=== PATIENT | male | born 1930 | race Caucasian/White ===

== ENCOUNTER → 2016-10-14 | Outpatient (CLI) | payer MEDICARE, OTHER ==
--- NOTE | 2016-10-14 13:59 | RADIOLOGY REPORT (SQ) ---
EXAM DESCRIPTION: MRI HEAD COMBO COMPLETED DATE/TIME: 10/14/2016 1:13 pm REASON FOR STUDY: HEADACHES R55 SYNCOPE AND COLLAPSE COMPARISON: None. TECHNIQUE: Multiplanar imaging includes noncontrasted T1, T2, FLAIR, Diffusion with ADC map and post gadolinium contrast T1 sequences. Images stored on PACS. CONTRAST TYPE AND DOSE: 15 mL Multihance. RENAL FUNCTION: GFR 50 LIMITATIONS: None. FINDINGS: ANATOMY: No anomalies. Normal vascular flow voids. Pituitary fossa normal. CSF SPACES: Atrophy-induced prominence of CSF spaces and ventricles. CEREBRUM: High-signal intensity lesions scattered throughout the white matter on FLAIR imaging with d istribution suggesting chronic micro-vascular ischemic change. No evidence of hemorrhage, mass, extra axial fluid collection or acute ischemic change. No enhancing lesions. POSTERIOR FOSSA: No signal alteration. No hemorrhage. No edema, masses, or mass effect. Internal miryam tory canals, cerebello-pontine angles, mastoids normal. No enhancing lesions. ORBITS: No masses. Globes normal. PARANASAL SINUSES: No fluid levels. Mucosa normal. DIFFUSION: Normal. No evidence of recent infarct. OTHER: No other significant finding. IMPRESSION: ATROPHY AND CHRONIC MICRO-VASCULAR ISCHEMIC CHANGES. OTHERWISE UNREMARKABLE MRI OF THE B RAIN WITHOUT AND WITH INTRAVENOUS GADOLINIUM CONTRAST. TECHNICAL DOCUMENTATION: JOB ID: [id number] [employer]- All Rights Reserved
== END ==
LOC: RAD 11:26
PROVIDERS: ATTEND Physician Assistant
DX: R55 Syncope and collapse (principal); R51 Headache; G31.9 Degenerative disease of nervous system, unspecified
CPT/HCPCS: 70553; 82565

== ENCOUNTER 2016-12-15 22:56 | Inpatient (IN) | payer MEDICARE, OTHER ==
--- NOTE | 2016-12-15 23:12 | RADIOLOGY REPORT (SQ) ---
EXAM DESCRIPTION: CHEST SINGLE VIEW COMPLETED DATE/TIME: 12/15/2016 11:04 pm REASON FOR STUDY: STROKE ALERT COMPARISON: January 2007 EXAM PARAMETERS: NUMBER OF VIEWS: One view. TECHNIQUE: Single frontal radiographic view of the chest acquired. RADIATION DOSE: NA LIMITATIONS: None. FINDINGS: LUNGS AND PLEURA: No opacities, masses or pneumothorax. No pleural effusion. MEDIASTINUM AND HILAR STRUCTURES: No masses. Contour normal. HEART AND VASCULAR STRUCTURES: Cardiac silhouette is enlarged and unchanged in configuration. Tortuo us calcified thoracic aorta is again identified. BONES: No acute findings. HARDWARE: Patient is status post median sternotomy. OTHER: No other significant finding. IMPRESSION: No significant interval change. No acute findings. Other findings as noted above TECHNICAL DOCUMENTATION: JOB ID: [id number]
--- NOTE | 2016-12-15 23:12 | RADIOLOGY REPORT (SQ) ---
EXAM DESCRIPTION: CT HEAD WITHOUT COMPLETED DATE/TIME: 12/15/2016 11:02 pm REASON FOR STUDY: STROKE ALERT COMPARISON: None. TECHNIQUE: Axial images acquired through the brain without intravenous contrast. Images reviewed wi th bone, brain and subdural windows. Images stored on PACS. All CT scanners at this facility use dose modulation, iterative reconstruction, and/or weight based d osing when appropriate to reduce radiation dose to as low as reasonably achievable (ALARA). [facility]: Dose Right [facility]: CareDose [facility]: Dose Right [facility]: Teradose 4D [facility]: Ticketbis RADIATION DOSE: mGy. LIMITATIONS: None. FINDINGS: VENTRICLES: Prominent. CEREBRUM: No masses. No hemorrhage. No midline shift. Areas of low density in the white matter mos t likely due to chronic micro-vascular ischemic change. No evidence for acute infarction. CEREBELLUM: No masses. No hemorrhage. No alteration of density. No evidence for acute infarction. EXTRAAXIAL SPACES: Mild age-related involutional change. No fluid collections. No masses. ORBITS AND GLOBE: No intra- or extraconal masses. Normal contour of globe without masses. CALVARIUM: No fracture. PARANASAL SINUSES: No fluid or mucosal thickening. SOFT TISSUES: No mass or hematoma. OTHER: No other significant finding. IMPRESSION: MILD CHRONIC CHANGES OF ATROPHY AND MICROVASCULAR ISCHEMIA. NO ACUTE PROCESS. COMMENT: Pertinent positive or negative findings of the imaging study reported as a CRITICAL EXAM eric ROTH MD at23:03 on 12/15/2016. Category of Critical Exam: Stroke alert TECHNICAL DOCUMENTATION: JOB ID: [id number] Quality ID # [id number]: Final reports with documentation of one or more dose reduction techniques (e.g., Au tomated exposure control, adjustment of the mA and/or kV according to patient size, use of iterative reconstruction technique) 2010 [employer]- All Rights Reserved
[2016-12-15 23:30] LABS: ABSOLUTE LYMPHOCYTES (AUTO) 0.9 10^3/uL (0.5-4.7); ABSOLUTE NEUT (AUTO) 10.1 10^3/uL (1.7-8.2); BASOPHILS % (AUTO) 0.2 % (0-2); EOSINOPHILS % (AUTO) 0.1 % (0-6); HEMATOCRIT 38.7 % (37.9-51.0); HEMOGLOBIN 13.1 g/dL (13.5-17.0); HGB HCT DIFFERENCE 0.6; LYMPHOCYTES % (AUTO) 7.5 % (13-45); MEAN CORPUSCULAR HEMOGLOBIN 32.9 pg (27.0-33.4); MEAN CORPUSCULAR HGB CONC 33.9 g/dL (32.0-36.0); MEAN CORPUSCULAR VOLUME 97 fl (80-97); MONOCYTES % (AUTO) 8.1 % (3-13); RED BLOOD COUNT 3.98 10^6/uL (4.35-5.55); RED CELL DISTRIBUTION WIDTH 15.1 % (11.5-14.0); SEGMENTED NEUTROPHILS % (AUTO) 84.1 % (42-78)
--- NOTE | 2016-12-15 23:36 | ER Document Report ---
ED General - General Chief Complaint: S/S of Possible Stroke Stated Complaint: POSS STROKE Time Seen by Provider: 12/15/16 23:03 Notes: Patient is an 86-year-old male with past medical history of A. fib, prior pig valve replacement, chronically anticoagulated on Coumadin who presents after family noted that he had a right-sided facial droop. There is an undetermined last known normal as patient does live alone. Does report that last evening he did fall when he felt like his left side was weaker than his right but is uncertain of whether or not he had a facial droop at that time. At approximately 1600 today his family came to visit and noted that his left face appeared to be drooped and encouraged him to come to the emergency department for further evaluation. Nothing improves or worsens his symptoms. He has no history of similar symptoms in the past. He has not seen his primary care doctor regarding today's concerns. TRAVEL OUTSIDE OF THE [place] IN LAST 30 DAYS: No - Related Data Allergies/Adverse Reactions: Sulfa (Sulfonamide Antibiotics) Allergy (Verified 08/06/12 16:33) Home Medications: Current Home Medications Allopurinol [Zyloprim] 300 mg PO DAILY 12/15/16 [History] Furosemide [Lasix] 40 mg PO BID 12/15/16 [History] Mirabegron [Myrbetriq] 50 mg PO DAILY 12/15/16 [History] Pantoprazole Sodium 40 mg PO DAILY 12/15/16 [History] Sertraline HCl 100 mg PO DAILY 12/15/16 [History] Past Medical History - General Information source: Patient - Social History Smoking Status: Never Smoker Frequency of alcohol use: None Drug Abuse: None Lives with: Alone Family History: Reviewed & Not Pertinent - Past Medical History Cardiac Medical History: Reports: Hx Atrial Fibrillation Past Surgical History: Reports: Hx Cardiac Surgery - open heart Review of Systems - Review of Systems Notes: Constitutional: Negative for fever. HENT: Negative for sore throat. Eyes: Negative for visual changes. Cardiovascular: Negative for chest pain. Respiratory: Negative for shortness of breath. Gastrointestinal: Negative for abdominal pain, vomiting or diarrhea. Genitourinary: Negative for dysuria. Musculoskeletal: Negative for back pain. Skin: Negative for rash. Neurological: Positive for left-sided weakness 10 point ROS negative except as marked above and in HPI. Physical Exam - Vital signs Vitals: Resp Pulse Ox 9 L 98 12/15/16 23:06 12/15/16 23:06 Interpretation: Normal Notes: PHYSICAL EXAMINATION: GENERAL: Appears stated age, somewhat frail but in no acute distress HEAD: Atraumatic, normocephalic. EYES: Pupils equal round and reactive to light, extraocular movements intact, sclera anicteric, conjunctiva are normal. ENT: nares patent, oropharynx clear without exudates. Moderately dry mucous membranes. NECK: Normal range of motion, supple without lymphadenopathy LUNGS: Breath sounds clear to auscultation bilaterally and equal. No wheezes rales or rhonchi. HEART: Irregularly irregular tachycardia without murmurs ABDOMEN: Soft, nontender, normoactive bowel sounds. No guarding, no rebound. No masses appreciated. EXTREMITIES: Normal range of motion, no pitting or edema. No cyanosis. NEUROLOGICAL: 4+ out of 5 strength both in the biceps and triceps in the left. Both distally and proximally in the left lower extremity the patient has 4+ out of 5. 5 out of 5 both distally and proximally in the right upper and lower extremity. There is a subtle facial droop on the left with effacement of the nasolabial fold. Tongue protrudes midline. Extraocular motions are intact. Pupils are equal and reactive. PSYCH: Normal mood, normal affect. SKIN: Warm, Dry, normal turgor, no rashes or lesions noted. Course - Re-evaluation Re-evalutation: 12/15/16 23:36 Patient presents with signs and symptoms of a mild right MCA distribution infarct undetermined age. Patient does not have a last known normal, family noted a right-sided facial droop when they visited him at 1600 today making him not a TPA candidate. Patient is also anticoagulated on Coumadin which should also further exclude the use of TPA. He does have a 4+ out of 5 both in the biceps and triceps as well as both distally and proximally in the left lower extremity versus the right. Very subtle left facial droop with effacement of the nasolabial fold. Patient otherwise denies any symptoms at this time. CT the head without any evidence of an acute injury bleed. Will obtain basic labs and plan for admission to the hospital. 12/16/16 01:02 INR is subtherapeutic at 1.34. Other labs are otherwise unremarkable. I discussed this case with Dr. Kit Sherman who will admit given that this is an acute stroke. - Vital Signs Vital signs: Temp Pulse Resp BP Pulse Ox 67 15 156/88 H 96 12/15/16 23:26 12/16/16 00:16 12/16/16 00:16 12/16/16 00:16 - Laboratory Result Diagrams: 12/15/16 23:09 12/15/16 23:09 Laboratory results interpreted by me: 12/15/16 12/15/16 12/15/16 23:09 23:09 23:09 WBC 12.0 H RBC 3.98 L Hgb 13.1 L RDW 15.1 H Plt Count 146 L Seg Neutrophils % 84.1 H Lymphocytes % 7.5 L Absolute Neutrophils 10.1 H PT 17.5 H Sodium 132.7 L Chloride 96 L Glucose 114 H - Diagnostic Test Radiology reviewed: Reports reviewed Radiology results interpreted by me: 12/16/16 01:01 CT head: No acute intracranial bleed - EKG Interpretation by Me Additional EKG results interpreted by me: 12/16/16 01:10 A. fib. Rate 76. No ST elevations or depressions. QTC is 486. Discharge - Discharge Clinical Impression: Acute CVA (cerebrovascular accident), Left-sided weakness Atrial fibrillation Qualifiers: Atrial fibrillation type: chronic Qualified Code(s): I48.2 - Chronic atrial fibrillation Condition: Fair Disposition: ADMITTED INPATIENT Admitting Provider: Rolando López Lane Unit Admitted: [facility] Referrals: KASEY JOHNSON MD [Primary Care Provider] - Follow up as needed
[2016-12-15 23:44] LABS: ALANINE AMINOTRANSFERASE 30 U/L (21-72); ALBUMIN 3.9 g/dL (3.5-5.0); ALKALINE PHOSPHATASE 98 U/L (38-126); ANION GAP 9 (5-19); ASPARTATE AMINO TRANSFERASE 28 U/L (17-59); BILIRUBIN,DIRECT 0.3 mg/dL (0.0-0.4); BILIRUBIN,TOTAL 0.7 mg/dL (0.2-1.3); BLOOD UREA NITROGEN 17 mg/dL (7-20); CALCIUM 9.4 mg/dL (8.4-10.2); CARBON DIOXIDE 28 mmol/L (22-30); CHLORIDE 96 mmol/L (98-107); GLUCOSE 114 mg/dL (75-110); POTASSIUM 4.3 mmol/L (3.6-5.0); SODIUM 132.7 mmol/L (137-145); TOTAL PROTEIN 6.8 g/dL (6.3-8.2)
[2016-12-16 00:03] LABS: PROTHROMBIN TIME 17.5 SEC (11.4-15.4)
[2016-12-16 00:04] LABS: PARTIAL THROMBOPLASTIN TIME 35.1 SEC (23.5-35.8)
[2016-12-16] MEDS ORDERED: ACETAMINOPHEN 325 MG TABLET PO PRN (02:16)
[2016-12-16] MEDS ORDERED: ATORVASTATIN CALCIUM 80 MG TABLET PO SCH (02:30)
[2016-12-16] MEDS ORDERED: WARFARIN SODIUM 5 MG TABLET PO ONE (02:45)
[2016-12-16] MEDS ORDERED: ATORVASTATIN CALCIUM 80 MG TABLET PO ONE (02:45)
[2016-12-16 03:29] LABS: TROPONIN I 0.015 ng/mL
[2016-12-16 03:34] LABS: CREATINE KINASE MB 2.15 ng/mL (<4.55)
[2016-12-16] MEDS: HEPARIN SOD (PORCINE) 5,000 UNIT/ML 1 ML SYRINGE SUBCUT SCH ×2 (05:10→13:17)
--- NOTE | 2016-12-16 08:13 | EKG REPORT ---
SEVERITY:- ABNORMAL ECG - ATRIAL FIBRILLATION, V-RATE 63-97 RIGHT BUNDLE BRANCH BLOCK OLD INFERIOR MO POSSIBLE : Confirmed by: Issac Alejandro MD 16-Dec-2016 08:13:27
[2016-12-16 09:24] LABS: CREATINE KINASE MB 1.99 ng/mL (<4.55); TROPONIN I 0.021 ng/mL
[2016-12-16] MEDS ORDERED: ZOLPIDEM TARTRATE PO PRN (09:37)
[2016-12-16] MEDS ORDERED: ZOLPIDEM TARTRATE 5 MG TABLET PO PRN (09:46)
[2016-12-16] MEDS ORDERED: CLOPIDOGREL BISULFATE 75 MG TABLET PO SCH (10:00)
[2016-12-16] MEDS: ENOXAPARIN SODIUM INJ 80 MG/0.8 ML DISP.SYRIN SUBCUT SCH ×2 (11:32→21:21)
[2016-12-16] MEDS: ALLOPURINOL 300 MG TABLET PO SCH (11:33)
[2016-12-16] MEDS: ASPIRIN 81 MG TABLET, ENT COATED PO SCH (11:34)
[2016-12-16] MEDS: FUROSEMIDE 40 MG TABLET PO SCH ×2 (11:35→17:14)
[2016-12-16] MEDS: LEVOTHYROXINE SODIUM 0.15 MG TABLET PO SCH (11:37)
[2016-12-16] MEDS: LANSOPRAZOLE 30 MG TAB.RAP.DR PO SCH (11:37)
[2016-12-16] MEDS: LISINOPRIL 10 MG TABLET PO SCH ×2 (11:37→21:22)
[2016-12-16] MEDS: SERTRALINE HCL 50 MG TABLET PO SCH (11:38)
[2016-12-16] MEDS ORDERED: NITROGLYCERIN 5 MG (0.2 MG/HR) PATCH.TD24 TD ONE (12:00)
--- NOTE | 2016-12-16 12:18 | RADIOLOGY REPORT (SQ) ---
EXAM DESCRIPTION: MRI HEAD WITHOUT COMPLETED DATE/TIME: 12/16/2016 12:09 pm REASON FOR STUDY: cva COMPARISON: CT brain 12/15/2016 MRI brain 10/14/2016 TECHNIQUE: Multiplanar imaging includes non-contrasted T1, T2, FLAIR, and diffusion with ADC map seq uences. Images stored on PACS. LIMITATIONS: None. FINDINGS: ANATOMY: No developmental anomalies. Normal vascular flow voids. Pituitary fossa normal. CSF SPACES: Normal in size and contour. No hemorrhage. Benign prominence of the CSF spaces over the right posterior frontal/ parietal region on coronal image 21, unchanged from prior brain MRI. CEREBRUM: Chronic minimal bifrontal and biparietal small vessel ischemic change. No MRI evidence of acute hemispheric infarct, acute intracranial hemorrhage, mass effect, or midline shift. POSTERIOR FOSSA: Diffusion-weighted images are positive for a moderate-sized infarct in the rightward half of the randal best shown on axial diffusion image 11. No superimposed acute hemorrhage. No loca l mass effect. Remainder of the posterior fossa structures are otherwise unremarkable. DIFFUSION IMAGING: Positive for a moderate size right pontine infarct ORBITS: No masses. Globes post cataract surgery. PARANASAL SINUSES: No fluid levels. Mucosa normal. OTHER: This report was called to Dr. Jarvis, 12 noon, 12/16/2016 IMPRESSION: Moderate size acute right pontine nonhemorrhagic infarct EVIDENCE OF ACUTE STROKE: NO. TECHNICAL DOCUMENTATION: JOB ID: [id number]- All Rights Reserved
--- NOTE | 2016-12-16 13:01 | RADIOLOGY REPORT (SQ) ---
EXAM DESCRIPTION: CAROTID DOPPLER COMPLETED DATE/TIME: 12/16/2016 12:44 pm REASON FOR STUDY: cva COMPARISON: None. TECHNIQUE: Grayscale ultrasound, Doppler velocity and spectra, and color Doppler images acquired of the extra-cranial carotid and vertebral arteries. Images stored on PACS. LIMITATIONS: None. FINDINGS: RIGHT CAROTID CCA Velocities: 39 cm/s. ICA Velocities Peak systolic 70cm/s. End diastolic 34cm/s. Proximal ICA/CCA peak systolic ratio 1.8. There is a small amount of plaque in the carotid bulb. Normal waveforms. LEFT CAROTID CCA Velocities: 39 cm/s ICA Velocities Peak systolic 84cm/s. End diastolic 33cm/s. Proximal ICA/CCA peak systolic ratio 2.2. There is a large amount of plaque in the carotid bulb and proximal internal carotid artery. The actu al percentage of plaque could not be determined because of the shadowing. VERTEBRAL ARTERIES: Antegrade flow. Normal waveforms. SUBCLAVIAN ARTERIES: No finding. OTHER: No other significant finding. IMPRESSION: Atherosclerotic changes are present bilaterally. There is considerable densely calcifie d plaque in the left carotid bulb and proximal internal carotid that limits evaluation. Numerically there is no hemodynamically significant lesion. Consider CTA for more accurate evaluation of the lef t carotid. COMMENT: Quality ID #[id number]: Velocity criteria are extrapolated from the diameter data as defined by t he Society of Radiologists in Ultrasound Consensus Conference. Radiology 2003: 229; 340-346. TECHNICAL DOCUMENTATION: JOB ID: [id number] [employer]- All Rights Reserved
[2016-12-16 14:24] LABS: APPEARANCE,URINE CLEAR; BILIRUBIN,URINE NEGATIVE (NEGATIVE); GLUCOSE, URINE NEGATIVE (NEGATIVE); KETONES,URINE NEGATIVE (NEGATIVE); LEUKOCYTE ESTERASE,URINE NEGATIVE (NEGATIVE); NITRITE,URINE NEGATIVE (NEGATIVE); PROTEIN,URINE NEGATIVE (NEGATIVE); URINE SPECIFIC GRAVITY 1.008; UROBILINOGEN,URINE NEGATIVE mg/dL (<2.0)
--- NOTE | 2016-12-16 14:41 | PDOC PROGRESS REPORT ---
Subjective Progress Note for:: 12/16/16 Subjective:: Patient seen on rounds. He is recently returned from MRI of his head. Continues to have mild left-sided facial droop and mild left-sided weakness. MRI report shows a moderate sized acute right pontine infarct. Patient was able to ambulate with the assistance of 2 people and rolling walker with physical therapy. At the present time he denies any chest pain, shortness of breath or dyspnea. Continues to be in a rate controlled atrial fibrillation. His daughter and son are at the bedside and states he has been on warfarin for years for atrial fibrillation. He states as far as they know he has been compliant with his medication. Physical Exam Vital Signs: Temp Pulse Resp BP Pulse Ox 98.0 F 70 18 139/72 H 97 12/16/16 12:32 12/16/16 12:32 12/16/16 12:32 12/16/16 12:32 12/16/16 12:32 Intake & Output 12/15/16 12/16/16 12/17/16 06:59 06:59 06:59 Intake Total 756 Output Total 400 Balance 356 Weight 76.1 kg General appearance: PRESENT: no acute distress, well-developed, well-nourished Head exam: PRESENT: atraumatic, normocephalic Eye exam: PRESENT: conjunctiva pink, EOMI, PERRLA. ABSENT: scleral icterus Ear exam: PRESENT: normal external ear exam Mouth exam: PRESENT: moist, tongue midline Neck exam: ABSENT: carotid bruit, JVD, lymphadenopathy, thyromegaly Respiratory exam: PRESENT: clear to auscultation sanam. ABSENT: rales, rhonchi, wheezes Cardiovascular exam: PRESENT: irregular rhythm, +S1, +S2, systolic murmur Pulses: PRESENT: normal carotid pulses, normal radial pulses GI/Abdominal exam: PRESENT: normal bowel sounds, soft. ABSENT: distended, guarding, mass, organolmegaly, rebound, tenderness Rectal exam: PRESENT: deferred Extremities exam: PRESENT: full ROM. ABSENT: calf tenderness, clubbing, pedal edema Musculoskeletal exam: PRESENT: full ROM - 4/5 muscle strength on the left, other Neurological exam: PRESENT: alert, awake, oriented to person, oriented to place , oriented to time, oriented to situation, CN II-XII grossly intact Psychiatric exam: PRESENT: appropriate affect, normal mood. ABSENT: homicidal ideation, suicidal ideation Skin exam: PRESENT: dry, intact, warm. ABSENT: cyanosis, rash Results Laboratory Results: 12/16/16 14:05 Urine Color YELLOW Urine Appearance CLEAR Urine pH 7.0 Ur Specific [place] 1.008 Urine Protein NEGATIVE Urine Glucose (UA) NEGATIVE Urine Ketones NEGATIVE Urine Blood NEGATIVE Urine Nitrite NEGATIVE Ur Leukocyte Esterase NEGATIVE Urine WBC (Auto) 0 12/16/16 12/16/16 12/16/16 02:57 02:57 08:28 Creatine Kinase 83 79 CK-MB (CK-2) 2.15 Troponin I 0.015 12/16/16 08:28 Creatine Kinase CK-MB (CK-2) 1.99 Troponin I 0.021 Impressions: Chest X-Ray 12/15/16 00:00 IMPRESSION: No significant interval change. No acute findings. Other findings as noted above Head CT 12/15/16 00:00 IMPRESSION: MILD CHRONIC CHANGES OF ATROPHY AND MICROVASCULAR ISCHEMIA. NO ACUTE PROCESS. Head MRI 12/16/16 00:00 IMPRESSION: Moderate size acute right pontine nonhemorrhagic infarct EVIDENCE OF ACUTE STROKE: NO. Carotid Doppler Study 12/16/16 02:18 IMPRESSION: Atherosclerotic changes are present bilaterally. There is considerable densely calcified plaque in the left carotid bulb and proximal internal carotid that limits evaluation. Numerically there is no hemodynamically significant lesion. Consider CTA for more accurate evaluation of the left carotid. Assessment & Plan - Diagnosis (1) Acute CVA (cerebrovascular accident) Is this a current diagnosis for this admission?: Yes Plan: Patient with acute right pontine infarct. INR subtherapeutic at 1.34 (3) Atrial fibrillation Qualifiers: Atrial fibrillation type: chronic Qualified Code(s): I48.2 - Chronic atrial fibrillation Is this a current diagnosis for this admission?: Yes Plan: Rate controlled INR subtherapeutic will place on Lovenox and increase Coumadin peña (4) Left-sided weakness Is this a current diagnosis for this admission?: Yes (5) Subtherapeutic anticoagulation Is this a current diagnosis for this admission?: Yes Plan: PAtient with INR of 1.34 on current dose of warfarin. He states he has been taking his normal warfarin dose. Will place on lovenox until therapeutic - Time Time Spent with patient: 25-34 minutes Critical Time spent with patient: 15-24 minutes Medications reviewed and adjusted accordingly: Yes Anticipated discharge: Home with Homehealth Within: within 24 hours - Inpatient Certification Based on my medical assessment, after consideration of the patient's comorbidities, presenting symptoms, or acuity I expect that the services needed warrant INPATIENT care.: Yes I certify that my determination is in accordance with my understanding of Medicare's requirements for reasonable and necessary INPATIENT services [42 CFR 412.3e].: Yes
[2016-12-16 15:50] LABS: CREATINE KINASE MB 2.01 ng/mL (<4.55); TROPONIN I 0.013 ng/mL
--- NOTE | 2016-12-16 19:22 | XCELERA REPORT ---
[address] [address] Transthoracic Echocardiogram Report Name: KASSANDRAPRINCESS SANCHEZ Age: 86 yrs Gender: Male : 1930 Patient Status: Inpatient Patient Location: [address] [place] [address] Study Date: 12/16/2016 09:05 AM Height: 66 in Weight: 170 lb BSA: 1.9 m2 Procedure: A complete two-dimensional transthoracic echocardiogram was performed (2D, M-mode, spectral and color flow Doppler). The study was technically difficult with many images being suboptimal in quality. Reason For Study: cva Ordering Physician: PRINCESS ODONNELL Performed By: Valencia Goncalves Interpretation Summary The study was technically difficult with many images being suboptimal in quality. Pt in A FIB during the study. The Ejection Fraction estimate is 45-50% Left ventricular systolic function is mildly reduced. The left ventricle is grossly normal size. There is borderline concentric left ventricular hypertrophy. Doppler measurements suggest pseudonormalized left ventricular relaxation, which is associated with grade II/IV or mild to moderate diastolic dysfunction Not all wall segments were well visualized. Regional wall motion abnormalities cannot be excluded due to limited visualization. The right ventricular systolic function is normal. The left atrium is moderately dilated. The right atrium is mildly dilated. There is a mild amount of mitral regurgitation No significant mitral valve stenosis. There is a trace to mild amount of aortic regurgitation There is mild to moderate aortic stenosis There is a peak gradient of 25-30 mm of Hg. There is a trace to mild amount of tricuspid regurgitation There is mild pulmonary hypertension by echo Right ventricular systolic pressure is estimated to be elevated at 30- 40mmHg. The aortic root is not well visualized. Consider ARMANDO if clinically indicated. May consider mobile cardiac telemetry monitoring (MCT) for ruling out transient AFIB. MMode/2D Measurements & Calculations RVDd: 3.3 cm LVIDd: 5.1 cmFS: 22.6 % Ao root diam: 3.1 cm IVSd: 1.1 cm LVIDs: 4.0 cmEDV(Teich): 124.0 ml LVPWd: 1.1 cmESV(Teich): 68.0 ml Ao root area: 7.6 cm2 EF(Teich): 45.2 % LA dimension: 5.2 cm LVOT diam: 2.2 cm LVOT area: 3.7 cm2 Doppler Measurements & Calculations MV E max brodie: MV P1/2t max brodie: Ao V2 max: LV V1 max P.0 cm/sec 142.5 cm/sec 262.0 cm/sec 2.5 mmHg MV A max brodie: MV P1/2t: 82.2 msec Ao max PG: LV V1 mean P.6 cm/sec MVA(P1/2t): 2.7 cm2 27.5 mmHg 1.6 mmHg MV E/A: 3.4 MV dec slope: Ao V2 mean: LV V1 max: 507.5 cm/sec2 200.0 cm/sec 78.4 cm/sec MV dec time: Ao mean PG: LV V1 mean: 0.27 sec 18.1 mmHg 58.8 cm/sec Ao V2 VTI: 58.4 cm LV V1 VTI: MANUELITO(I,D): 1.1 cm2 17.4 cm MANUELITO(V,D): 1.1 cm2 SV(LVOT): 64.9 ml PA V2 max: PI end-d brodie: TR max brodie: 55.9 cm/sec 185.9 cm/sec 252.8 cm/sec PA max P.3 mmHg TR max P.6 mmHg Left Ventricle The left ventricle is grossly normal size. There is borderline concentric left ventricular hypertrophy. Left ventricular systolic function is mildly reduced. The Ejection Fraction estimate is 45-50%. Doppler measurements suggest pseudonormalized left ventricular relaxation, which is associated with grade II/IV or mild to moderate diastolic dysfunction. Not all wall segments were well visualized. Regional wall motion abnormalities cannot be excluded due to limited visualization. Right Ventricle The right ventricle is grossly normal size. There is normal right ventricular wall thickness. The right ventricular systolic function is normal. Atria The right atrium is mildly dilated. The left atrium is moderately dilated. Mitral Valve No significant mitral valve stenosis. There is a mild amount of mitral regurgitation. There is a bioprosthetic mitral valve. Aortic Valve The aortic valve is moderately calcified. There is mild to moderate aortic stenosis. There is a peak gradient of 25-30 mm of Hg. There is a trace to mild amount of aortic regurgitation. Tricuspid Valve The tricuspid valve is not well visualized secondary to technical limitations. There is no tricuspid stenosis. There is a trace to mild amount of tricuspid regurgitation. There is mild pulmonary hypertension by echo. Right ventricular systolic pressure is estimated to be elevated at 30-40mmHg. Pulmonic Valve The pulmonic valve is not well visualized. Great Vessels The aortic root is not well visualized. The inferior vena cava was not well visualized. Effusions There is no pericardial effusion. Incidental Findings Consider ARMANDO if clinically indicated. May consider mobile cardiac telemetry monitoring (MCT) for ruling out transient AFIB. : PRINCESS ODONNELL > Anisa Oscar
[2016-12-16] MEDS: WARFARIN SODIUM 5 MG TABLET PO SCH (21:22)
[2016-12-16] MEDS: ATORVASTATIN CALCIUM 80 MG TABLET PO SCH (21:23)
[2016-12-16] MEDS: MONTELUKAST SODIUM 10 MG TABLET PO SCH (21:23)
[2016-12-16] MEDS: PREDNISONE 1 MG TABLET PO SCH (21:24)
[2016-12-16] MEDS ORDERED: WARFARIN SODIUM 5 MG TABLET PO SCH (22:00)
[2016-12-17 05:58] LABS: ABSOLUTE BASOPHILS # (AUTO) 0.1 10^3/uL (0.0-0.2); ABSOLUTE EOSINOPHILS # (AUTO) 0.1 10^3/uL (0.0-0.6); ABSOLUTE LYMPHOCYTES (AUTO) 1.2 10^3/uL (0.5-4.7); ABSOLUTE MONOCYTES (AUTO) 0.8 10^3/uL (0.1-1.4); ABSOLUTE NEUT (AUTO) 5.8 10^3/uL (1.7-8.2); BASOPHILS % (AUTO) 0.7 % (0-2); EOSINOPHILS % (AUTO) 1.5 % (0-6); HEMATOCRIT 37.6 % (37.9-51.0); HEMOGLOBIN 12.9 g/dL (13.5-17.0); HGB HCT DIFFERENCE 1.1; LYMPHOCYTES % (AUTO) 15.4 % (13-45); MEAN CORPUSCULAR HEMOGLOBIN 33.4 pg (27.0-33.4); MEAN CORPUSCULAR HGB CONC 34.4 g/dL (32.0-36.0); MEAN CORPUSCULAR VOLUME 97 fl (80-97); MONOCYTES % (AUTO) 9.8 % (3-13); RED BLOOD COUNT 3.87 10^6/uL (4.35-5.55); RED CELL DISTRIBUTION WIDTH 15.7 % (11.5-14.0); SEGMENTED NEUTROPHILS % (AUTO) 72.6 % (42-78)
[2016-12-17 06:05] LABS: PROTHROMBIN TIME 17.4 SEC (11.4-15.4)
[2016-12-17 06:22] LABS: ANION GAP 6 (5-19); BLOOD UREA NITROGEN 16 mg/dL (7-20); CALCIUM 9.1 mg/dL (8.4-10.2); CARBON DIOXIDE 29 mmol/L (22-30); CHLORIDE 97 mmol/L (98-107); CHOLESTEROL 227.19 mg/dL (0-200); Direct HDL 56 mg/dL (>40); GLUCOSE 89 mg/dL (75-110); POTASSIUM 4.2 mmol/L (3.6-5.0); SODIUM 132.3 mmol/L (137-145); TRIGLYCERIDES 169 mg/dL (<150)
--- NOTE | 2016-12-17 06:23 | PDOC H&P ---
History of Present Illness Admission Date/PCP: 12/16/16 02:17 KASEY JOHNSON MD Patient complains of: Right-sided facial droop History of Present Illness: PRINCESS LOVE is a 86 year old male with past medical history of atrial fibrillation, chronic anticoagulation on Coumadin, bioprosthetic valve, coronary artery disease, hypertension, gout and depression. Patient been in his usual state of health until approximately 4 hours prior to presentation with a sudden onset of left-sided facial weakness. He denies previous episode, change in medications, headache or blurred vision. In the emergency room he has left-sided weakness however his workup was unremarkable with exception to subtherapeutic INR. He is started on aspirin and referred to the hospitalist for admission. Past Medical History Cardiac Medical History: Reports: Atrial Fibrillation Psychiatric Medical History: Reports: Depression Past Surgical History Past Surgical History: Reports: Valve Replacement Social History Information Source: Patient Lives with: Alone Smoking Status: Former Smoker Number of Years Smokin Last Time Smoked: 1976 Frequency of Alcohol Use: Social Hx Recreational Drug Use: No Hx Prescription Drug Abuse: No - Advance Directive Resuscitation Status: Full Code Family History Family History: Hypertension Parental Family History Reviewed: Yes Children Family History Reviewed: Yes Sibling(s) Family History Reviewed.: Yes Medication/Allergy Home Medications: Lisinopril 10 mg PO Q12 08/06/12 Montelukast Sodium [Singulair 10 Mg Tablet] 10 mg PO QHS 08/06/12 Nitroglycerin [Nitro-Dur 5 mg (0.2 mg/hr) TD Patch] 1 patch TD QAM 08/06/12 Zolpidem Tartrate [Ambien 10 mg Tablet] 10 mg PO QHS 08/06/12 Allopurinol [Zyloprim] 300 mg PO DAILY 12/15/16 Furosemide [Lasix] 40 mg PO Q12 12/15/16 Mirabegron [Myrbetriq] 50 mg PO DAILY 12/15/16 Pantoprazole Sodium 40 mg PO DAILY 12/15/16 Sertraline HCl 100 mg PO DAILY 12/15/16 Fexofenadine HCl [Alondra] 180 mg PO DAILY 12/16/16 Levothyroxine Sodium [Synthroid 0.15 mg Tablet] 0.15 mg PO QAM 12/16/16 Magnesium Oxide [Mag-Ox 400 mg Tablet] 400 mg PO DAILY 12/16/16 Prednisone [Deltasone 1 mg Tablet] 2 mg PO Q12 12/16/16 Warfarin Sodium [Coumadin 4 mg Tablet] 4 mg PO QHS 12/16/16 Allergies/Adverse Reactions: Sulfa (Sulfonamide Antibiotics) Allergy (Verified 08/06/12 16:33) Review of Systems Constitutional: ABSENT: chills, fever(s), headache(s), weight gain, weight loss Eyes: ABSENT: visual disturbances Ears: ABSENT: hearing changes Cardiovascular: ABSENT: chest pain, dyspnea on exertion, edema, orthropnea, palpitations Respiratory: ABSENT: cough, hemoptysis Gastrointestinal: ABSENT: abdominal pain, constipation, diarrhea, hematemesis, hematochezia, nausea, vomiting Genitourinary: ABSENT: dysuria, hematuria Musculoskeletal: ABSENT: joint swelling Integumentary: ABSENT: rash, wounds Neurological: ABSENT: abnormal gait, abnormal speech, confusion, dizziness, focal weakness, syncope Psychiatric: ABSENT: anxiety, depression, homidical ideation, suicidal ideation Endocrine: ABSENT: cold intolerance, heat intolerance, polydipsia, polyuria Hematologic/Lymphatic: ABSENT: easy bleeding, easy bruising Physical Exam Vital Signs: Temp Pulse Resp BP Pulse Ox 97.7 F 72 19 140/86 H 97 12/17/16 03:53 12/17/16 04:00 12/17/16 04:00 12/17/16 04:00 12/17/16 04:00 Intake & Output 12/15/16 12/16/16 12/17/16 11:59 11:59 11:59 Intake Total 756 936 Output Total 400 600 Balance 356 336 Weight 76.1 kg 76 kg General appearance: PRESENT: no acute distress, cooperative, well-developed, well-nourished Head exam: PRESENT: atraumatic, normocephalic Eye exam: PRESENT: conjunctiva pink, EOMI, PERRLA. ABSENT: scleral icterus Ear exam: PRESENT: normal external ear exam Mouth exam: PRESENT: moist, tongue midline, other - Left-sided facial asymmetry Neck exam: ABSENT: carotid bruit, JVD, lymphadenopathy, thyromegaly Respiratory exam: PRESENT: clear to auscultation sanam. ABSENT: rales, rhonchi, wheezes Cardiovascular exam: PRESENT: irregular rhythm, systolic murmur. ABSENT: bradycardia, diastolic murmur, gallop Pulses: PRESENT: normal dorsalis pedis pul Vascular exam: PRESENT: normal capillary refill GI/Abdominal exam: PRESENT: normal bowel sounds, soft. ABSENT: distended, guarding, mass, organolmegaly, rebound, tenderness Rectal exam: PRESENT: deferred Extremities exam: PRESENT: full ROM. ABSENT: calf tenderness, clubbing, pedal edema Musculoskeletal exam: PRESENT: other - Left-sided 4+ of 5 weakness Neurological exam: PRESENT: alert, awake, oriented to person, oriented to place , oriented to time, oriented to situation. ABSENT: CN II-XII grossly intact - Left-sided facial weakness, motor sensory deficit Psychiatric exam: PRESENT: appropriate affect, normal mood. ABSENT: homicidal ideation, suicidal ideation Skin exam: PRESENT: dry, intact, warm. ABSENT: cyanosis, rash Results Laboratory Results: 12/17/16 05:23 12/16/16 12/17/16 14:05 05:23 WBC 8.0 RBC 3.87 L Hgb 12.9 L Hct 37.6 L MCV 97 MCH 33.4 MCHC 34.4 RDW 15.7 H Plt Count 134 L Seg Neutrophils % 72.6 Lymphocytes % 15.4 Monocytes % 9.8 Eosinophils % 1.5 Basophils % 0.7 Absolute Neutrophils 5.8 Absolute Lymphocytes 1.2 Absolute Monocytes 0.8 Absolute Eosinophils 0.1 Absolute Basophils 0.1 Urine Color YELLOW Urine Appearance CLEAR Urine pH 7.0 Ur Specific [place] 1.008 Urine Protein NEGATIVE Urine Glucose (UA) NEGATIVE Urine Ketones NEGATIVE Urine Blood NEGATIVE Urine Nitrite NEGATIVE Ur Leukocyte Esterase NEGATIVE Urine WBC (Auto) 0 12/16/16 12/16/16 12/16/16 02:57 02:57 08:28 Creatine Kinase 83 79 CK-MB (CK-2) 2.15 Troponin I 0.015 12/16/16 12/16/16 12/16/16 08:28 14:40 14:40 Creatine Kinase 63 CK-MB (CK-2) 1.99 2.01 Troponin I 0.021 0.013 Impressions: Chest X-Ray 12/15/16 00:00 IMPRESSION: No significant interval change. No acute findings. Other findings as noted above Head CT 12/15/16 00:00 IMPRESSION: MILD CHRONIC CHANGES OF ATROPHY AND MICROVASCULAR ISCHEMIA. NO ACUTE PROCESS. Head MRI 12/16/16 00:00 IMPRESSION: Moderate size acute right pontine nonhemorrhagic infarct EVIDENCE OF ACUTE STROKE: NO. Carotid Doppler Study 12/16/16 02:18 IMPRESSION: Atherosclerotic changes are present bilaterally. There is considerable densely calcified plaque in the left carotid bulb and proximal internal carotid that limits evaluation. Numerically there is no hemodynamically significant lesion. Consider CTA for more accurate evaluation of the left carotid. Assessment & Plan - Diagnosis (1) Acute CVA (cerebrovascular accident) Is this a current diagnosis for this admission?: Yes Plan: Likely secondary to atrial fibrillation with subtherapeutic INR, admitted to the [facility] with a CVA care set, continue aspirin, initiate full dose Lipitor with increased Coumadin and reevaluation of INR, MRI, carotid Doppler and echocardiogram. (2) Atrial fibrillation Qualifiers: Atrial fibrillation type: chronic Qualified Code(s): I48.2 - Chronic atrial fibrillation Is this a current diagnosis for this admission?: Yes Plan: Rate controlled subtherapeutic INR increase Coumadin dose (3) Left-sided weakness Is this a current diagnosis for this admission?: Yes Plan: Physical and Occupational Therapy (4) Subtherapeutic anticoagulation Is this a current diagnosis for this admission?: Yes Plan: Increase Coumadin dose with education reevaluate INR - Time Time Spent: 50 to 70 Minutes - Inpatient Certification Medical Necessity: Need Close Monitoring Due to Risk of Patient Decompensation
[2016-12-17 06:32] LABS: DIRECT LDL 143 mg/dL (<100)
[2016-12-17 06:33] LABS: VLDL CHOLESTEROL 33.8 mg/dL (10-31)
[2016-12-17] MEDS ORDERED: LEVOTHYROXINE SODIUM 0.15 MG TABLET PO SCH (08:00)
[2016-12-17] MEDS: NITROGLYCERIN 5 MG (0.2 MG/HR) PATCH.TD24 TD SCH (09:25)
[2016-12-17] MEDS: SERTRALINE HCL 50 MG TABLET PO SCH (09:29)
[2016-12-17] MEDS: ALLOPURINOL 300 MG TABLET PO SCH (09:30)
[2016-12-17] MEDS: LANSOPRAZOLE 30 MG TAB.RAP.DR PO SCH (09:30)
[2016-12-17] MEDS: MAGNESIUM OXIDE 400 MG TABLET PO SCH (09:30)
[2016-12-17] MEDS: ASPIRIN 81 MG TABLET, ENT COATED PO SCH (09:30)
[2016-12-17] MEDS: LISINOPRIL 10 MG TABLET PO SCH ×2 (09:30→21:08)
[2016-12-17] MEDS: FUROSEMIDE 40 MG TABLET PO SCH ×2 (09:31→17:14)
[2016-12-17] MEDS: LORATADINE 10 MG TABLET PO SCH (09:31)
[2016-12-17] MEDS: LEVOTHYROXINE SODIUM 0.15 MG TABLET PO SCH (09:31)
[2016-12-17] MEDS: ENOXAPARIN SODIUM INJ 80 MG/0.8 ML DISP.SYRIN SUBCUT SCH ×2 (09:35→21:07)
[2016-12-17] MEDS: PREDNISONE 1 MG TABLET PO SCH ×2 (09:40→21:10)
--- NOTE | 2016-12-17 13:49 | PDOC PROGRESS REPORT ---
Subjective Progress Note for:: 12/17/16 Subjective:: Patient seen on rounds. Patient was able to ambulate with the assistance of 2 people and rolling walker with physical therapy. At the present time he denies any chest pain, shortness of breath or dyspnea. Continues to be in a rate controlled atrial fibrillation. His INR is still subtherapeutic despite increasing warfarin dose. He is presently being bridged with lovenox as well. Remaining review of systems is negative. Physical Exam Vital Signs: Temp Pulse Resp BP Pulse Ox 97.6 F 68 16 146/104 H 97 12/17/16 07:47 12/17/16 07:47 12/17/16 07:47 12/17/16 07:47 12/17/16 07:47 Intake & Output 12/16/16 12/17/16 12/18/16 06:59 06:59 06:59 Intake Total 756 1336 Output Total 400 1200 Balance 356 136 Weight 76.1 kg 76 kg General appearance: PRESENT: no acute distress, well-developed, well-nourished Head exam: PRESENT: atraumatic, normocephalic Eye exam: PRESENT: conjunctiva pink, EOMI, PERRLA. ABSENT: scleral icterus Ear exam: PRESENT: normal external ear exam Mouth exam: PRESENT: moist, tongue midline Neck exam: ABSENT: carotid bruit, JVD, lymphadenopathy, thyromegaly Respiratory exam: PRESENT: clear to auscultation sanam. ABSENT: rales, rhonchi, wheezes Cardiovascular exam: PRESENT: irregular rhythm, +S1, +S2, systolic murmur Pulses: PRESENT: normal carotid pulses, normal radial pulses, normal dorsalis pedis pul Vascular exam: PRESENT: normal capillary refill GI/Abdominal exam: PRESENT: normal bowel sounds, soft. ABSENT: distended, guarding, mass, organolmegaly, rebound, tenderness Rectal exam: PRESENT: deferred Extremities exam: PRESENT: full ROM, other - 4/5 muscle strength on the left. ABSENT: calf tenderness, clubbing, pedal edema Neurological exam: PRESENT: alert, awake, oriented to person, oriented to place , oriented to time, oriented to situation, abnormal gait - left sided extremities 4/5 muscle strenght, CN II-XII grossly intact. ABSENT: motor sensory deficit Psychiatric exam: PRESENT: appropriate affect, normal mood. ABSENT: homicidal ideation, suicidal ideation Skin exam: PRESENT: dry, intact, warm. ABSENT: cyanosis, rash Results Laboratory Results: 12/17/16 05:23 12/17/16 05:23 12/16/16 12/17/16 12/17/16 14:05 05:23 05:23 WBC 8.0 RBC 3.87 L Hgb 12.9 L Hct 37.6 L MCV 97 MCH 33.4 MCHC 34.4 RDW 15.7 H Plt Count 134 L Seg Neutrophils % 72.6 Lymphocytes % 15.4 Monocytes % 9.8 Eosinophils % 1.5 Basophils % 0.7 Absolute Neutrophils 5.8 Absolute Lymphocytes 1.2 Absolute Monocytes 0.8 Absolute Eosinophils 0.1 Absolute Basophils 0.1 Sodium 132.3 L Potassium 4.2 Chloride 97 L Carbon Dioxide 29 Anion Gap 6 BUN 16 Creatinine 0.90 Est GFR ( Amer) > 60 Est GFR (Non-Af Amer) > 60 Glucose 89 Calcium 9.1 Triglycerides 169 H Cholesterol 227.19 H LDL Cholesterol Direct 143 H VLDL Cholesterol 33.8 H HDL Cholesterol 56 Urine Color YELLOW Urine Appearance CLEAR Urine pH 7.0 Ur Specific [place] 1.008 Urine Protein NEGATIVE Urine Glucose (UA) NEGATIVE Urine Ketones NEGATIVE Urine Blood NEGATIVE Urine Nitrite NEGATIVE Ur Leukocyte Esterase NEGATIVE Urine WBC (Auto) 0 12/16/16 12/16/16 12/16/16 02:57 02:57 08:28 Creatine Kinase 83 79 CK-MB (CK-2) 2.15 Troponin I 0.015 12/16/16 12/16/16 12/16/16 08:28 14:40 14:40 Creatine Kinase 63 CK-MB (CK-2) 1.99 2.01 Troponin I 0.021 0.013 Impressions: Chest X-Ray 12/15/16 00:00 IMPRESSION: No significant interval change. No acute findings. Other findings as noted above Head CT 12/15/16 00:00 IMPRESSION: MILD CHRONIC CHANGES OF ATROPHY AND MICROVASCULAR ISCHEMIA. NO ACUTE PROCESS. Head MRI 12/16/16 00:00 IMPRESSION: Moderate size acute right pontine nonhemorrhagic infarct EVIDENCE OF ACUTE STROKE: NO. Carotid Doppler Study 12/16/16 02:18 IMPRESSION: Atherosclerotic changes are present bilaterally. There is considerable densely calcified plaque in the left carotid bulb and proximal internal carotid that limits evaluation. Numerically there is no hemodynamically significant lesion. Consider CTA for more accurate evaluation of the left carotid. Assessment & Plan - Diagnosis (1) Acute CVA (cerebrovascular accident) Is this a current diagnosis for this admission?: Yes Plan: Patient with acute right pontine infarct. INR subtherapeutic at 1.34 (2) Essential hypertension Is this a current diagnosis for this admission?: Yes Plan: Presently normotensive on current medications (3) Atrial fibrillation Qualifiers: Atrial fibrillation type: chronic Qualified Code(s): I48.2 - Chronic atrial fibrillation Is this a current diagnosis for this admission?: Yes Plan: Rate controlled INR subtherapeutic will place on Lovenox and increase Coumadin peña (4) Left-sided weakness Is this a current diagnosis for this admission?: Yes (5) Subtherapeutic anticoagulation Is this a current diagnosis for this admission?: Yes Plan: PAtient with INR of 1.34 on current dose of warfarin. He states he has been taking his normal warfarin dose. Will place on lovenox until therapeutic - Time Time Spent with patient: 25-34 minutes Critical Time spent with patient: 15-24 minutes Medications reviewed and adjusted accordingly: Yes Anticipated discharge: Home with Homehealth
[2016-12-17] MEDS: MONTELUKAST SODIUM 10 MG TABLET PO SCH (21:08)
[2016-12-17] MEDS: ATORVASTATIN CALCIUM 80 MG TABLET PO SCH (21:08)
[2016-12-17] MEDS: WARFARIN SODIUM 5 MG TABLET PO SCH (21:10)
[2016-12-17] MEDS: DOCUSATE SODIUM 100 MG CAPSULE PO PRN (22:30)
[2016-12-18] MEDS: DOCUSATE SODIUM 100 MG CAPSULE PO PRN (05:02)
[2016-12-18] MEDS ORDERED: LEVOTHYROXINE SODIUM 0.15 MG TABLET PO SCH (06:00)
[2016-12-18] MEDS ORDERED: LANSOPRAZOLE 30 MG TAB.RAP.DR PO SCH (06:00)
[2016-12-18 06:11] LABS: HEMATOCRIT 37.6 % (37.9-51.0); HGB HCT DIFFERENCE 1.4; MEAN CORPUSCULAR HEMOGLOBIN 33.7 pg (27.0-33.4); MEAN CORPUSCULAR HGB CONC 34.5 g/dL (32.0-36.0); MEAN CORPUSCULAR VOLUME 98 fl (80-97); RED BLOOD COUNT 3.85 10^6/uL (4.35-5.55); RED CELL DISTRIBUTION WIDTH 14.9 % (11.5-14.0); WHITE BLOOD COUNT 8.4 10^3/uL (4.0-10.5)
[2016-12-18 06:17] LABS: PROTHROMBIN TIME 19.8 SEC (11.4-15.4)
[2016-12-18] MEDS: NITROGLYCERIN 5 MG (0.2 MG/HR) PATCH.TD24 TD SCH (09:34)
[2016-12-18] MEDS: MAGNESIUM OXIDE 400 MG TABLET PO SCH (09:35)
[2016-12-18] MEDS: FUROSEMIDE 40 MG TABLET PO SCH (09:36)
[2016-12-18] MEDS: LISINOPRIL 10 MG TABLET PO SCH (09:36)
[2016-12-18] MEDS: SERTRALINE HCL 50 MG TABLET PO SCH (09:37)
[2016-12-18] MEDS: ALLOPURINOL 300 MG TABLET PO SCH (09:37)
[2016-12-18] MEDS: LORATADINE 10 MG TABLET PO SCH (09:37)
[2016-12-18] MEDS: PREDNISONE 1 MG TABLET PO SCH (09:38)
[2016-12-18] MEDS: ENOXAPARIN SODIUM INJ 80 MG/0.8 ML DISP.SYRIN SUBCUT SCH (09:39)
[2016-12-18] MEDS ORDERED: ASPIRIN 81 MG TABLET, ENT COATED PO SCH (10:00)
[2016-12-18 11:09] LABS: APPEARANCE,URINE CLEAR; BILIRUBIN,URINE NEGATIVE (NEGATIVE); GLUCOSE, URINE NEGATIVE (NEGATIVE); KETONES,URINE NEGATIVE (NEGATIVE); LEUKOCYTE ESTERASE,URINE NEGATIVE (NEGATIVE); NITRITE,URINE NEGATIVE (NEGATIVE); PROTEIN,URINE NEGATIVE (NEGATIVE); URINE SPECIFIC GRAVITY 1.009; UROBILINOGEN,URINE NEGATIVE mg/dL (<2.0)
[2016-12-18 16:08] VITALS: BP 157/86
--- NOTE | 2016-12-24 11:54 | PDOC DISCHARGE SUMMARY ---
General - Admit/Disc Date/PCP Admission Date/Primary Care Provider: 12/16/16 02:17 KASEY JOHNSON MD Discharge Date: 12/18/16 - Discharge Diagnosis (1) Acute CVA (cerebrovascular accident) Is this a current diagnosis for this admission?: Yes (2) Essential hypertension Is this a current diagnosis for this admission?: Yes (3) Atrial fibrillation Is this a current diagnosis for this admission?: Yes (4) Left-sided weakness Is this a current diagnosis for this admission?: Yes (5) Subtherapeutic anticoagulation Is this a current diagnosis for this admission?: Yes - Additional Information Resuscitation Status: Full Code Discharge Activity: Activity As Tolerated, Balance Activity w/Rest Home Medications: Lisinopril 10 mg PO Q12 08/06/12 Montelukast Sodium [Singulair 10 mg Tablet] 10 mg PO QHS 08/06/12 Nitroglycerin [Nitro-Dur 5 mg (0.2 mg/hr) TD Patch] 1 patch TD QAM 08/06/12 Zolpidem Tartrate [Ambien 10 mg Tablet] 10 mg PO QHS 08/06/12 Allopurinol [Zyloprim] 300 mg PO DAILY 12/15/16 Furosemide [Lasix] 40 mg PO Q12 12/15/16 Mirabegron [Myrbetriq] 50 mg PO DAILY 12/15/16 Pantoprazole Sodium 40 mg PO DAILY 12/15/16 Sertraline HCl 100 mg PO DAILY 12/15/16 Fexofenadine HCl [Alondra] 180 mg PO DAILY 12/16/16 Levothyroxine Sodium [Synthroid 0.15 mg Tablet] 0.15 mg PO QAM 12/16/16 Magnesium Oxide [Mag-Ox 400 mg Tablet] 400 mg PO DAILY 12/16/16 Prednisone [Deltasone 1 mg Tablet] 2 mg PO Q12 12/16/16 Acetaminophen [Tylenol 325 mg Tablet] 650 mg PO Q4HP PRN tablet 12/18/16 Aspirin [Ecotrin 81 mg EC Tablet] 81 mg PO DAILY tabec 12/18/16 Warfarin Sodium [Coumadin 5 mg Tablet] 5 mg PO QHS #60 tablet 12/18/16 Warfarin Sodium [Coumadin] 5 mg PO ASDIR PRN #60 tablet 12/18/16 History of Present Illness Patient complains of: Left sided weakness and dizziness History of Present Illness: PRINCESS LOVE is a 86 year old male with past medical history of atrial fibrillation, chronic anticoagulation on Coumadin, bioprosthetic valve, coronary artery disease, hypertension, gout and depression. Patient been in his usual state of health until approximately 4 hours prior to presentation with a sudden onset of left-sided facial weakness. He denies previous episode, change in medications, headache or blurred vision. In the emergency room he has left-sided weakness however his workup was unremarkable with exception to subtherapeutic INR. He is started on aspirin and referred to the hospitalist for admission. Hospital Course Hospital Course: Patient was admitted to the hospitalist's service on IMCU on telemetry. He continued to have mild left extremity weakness. He had no difficulty swallowing or tolerating a diet. MRI showed acute right randal infarct. PT and OT evaluated patient. He was started on therapeutic lovenox due to subtherapeutic INR on warfarin. . He continued to improve. Physical therapy felt he could be discharged home with home PT and nursing. His daughter who lives next door will be staying with him for awhile. His INR came up with increase in his warfarin dose. He will have INR rechecked in 2 days by home health Physical Exam Vital Signs: Temp Pulse Resp BP Pulse Ox 98.0 F 65 12 145/80 H 97 12/18/16 12:23 12/18/16 12:23 12/18/16 12:23 12/18/16 12:23 12/18/16 12:23 Intake & Output 12/17/16 12/18/16 12/19/16 06:59 06:59 06:59 Intake Total 1336 2094 Output Total 1200 0 Balance 136 2094 Weight 76 kg 77.2 kg General appearance: PRESENT: no acute distress, well-developed, well-nourished Head exam: PRESENT: atraumatic, normocephalic Eye exam: PRESENT: conjunctiva pink, EOMI, PERRLA. ABSENT: scleral icterus Ear exam: PRESENT: normal external ear exam Mouth exam: PRESENT: moist, tongue midline Neck exam: ABSENT: carotid bruit, JVD, lymphadenopathy, thyromegaly Respiratory exam: PRESENT: clear to auscultation sanam. ABSENT: rales, rhonchi, wheezes Cardiovascular exam: PRESENT: irregular rhythm, +S1, +S2 Pulses: PRESENT: normal dorsalis pedis pul Vascular exam: PRESENT: normal capillary refill GI/Abdominal exam: PRESENT: normal bowel sounds, soft. ABSENT: distended, guarding, mass, organolmegaly, rebound, tenderness Musculoskeletal exam: PRESENT: ambulatory, other - 4/5 left sided weakness Neurological exam: PRESENT: alert, awake, oriented to person, oriented to place , oriented to time, oriented to situation, CN II-XII grossly intact, other - 4/ 5 left sided weakness, no dysarthria or facial droop. ABSENT: motor sensory deficit Psychiatric exam: PRESENT: appropriate affect, normal mood. ABSENT: homicidal ideation, suicidal ideation Skin exam: PRESENT: dry, intact, warm. ABSENT: cyanosis, rash Results Laboratory Results: 12/18/16 05:43 12/17/16 05:23 12/18/16 12/18/16 05:43 08:05 WBC 8.4 RBC 3.85 L Hgb 13.0 L Hct 37.6 L MCV 98 H MCH 33.7 H MCHC 34.5 RDW 14.9 H Plt Count 127 L Urine Color STRAW Urine Appearance CLEAR Urine pH 7.0 Ur Specific [place] 1.009 Urine Protein NEGATIVE Urine Glucose (UA) NEGATIVE Urine Ketones NEGATIVE Urine Blood NEGATIVE Urine Nitrite NEGATIVE Ur Leukocyte Esterase NEGATIVE Urine WBC (Auto) 0 Urine RBC (Auto) 0 12/16/16 12/16/16 12/16/16 02:57 02:57 08:28 Creatine Kinase 83 79 CK-MB (CK-2) 2.15 Troponin I 0.015 12/16/16 12/16/16 12/16/16 08:28 14:40 14:40 Creatine Kinase 63 CK-MB (CK-2) 1.99 2.01 Troponin I 0.021 0.013 Impressions: Chest X-Ray 12/15/16 00:00 IMPRESSION: No significant interval change. No acute findings. Other findings as noted above Head CT 12/15/16 00:00 IMPRESSION: MILD CHRONIC CHANGES OF ATROPHY AND MICROVASCULAR ISCHEMIA. NO ACUTE PROCESS. Head MRI 12/16/16 00:00 IMPRESSION: Moderate size acute right pontine nonhemorrhagic infarct EVIDENCE OF ACUTE STROKE: NO. Carotid Doppler Study 12/16/16 02:18 IMPRESSION: Atherosclerotic changes are present bilaterally. There is considerable densely calcified plaque in the left carotid bulb and proximal internal carotid that limits evaluation. Numerically there is no hemodynamically significant lesion. Consider CTA for more accurate evaluation of the left carotid. Qualifiers PATEINT BEING DISCHARGED WITH ANY OF THE FOLLOWING DIAGNOSIS?: Stroke VTE patient discharged on overlapping Therapy?: Yes Stroke Pt being discharged on Anti-thrombolytic therapy?: Yes Stroke Pt being discharged on Anti-coagulation therapy?: Yes Stroke Pt being discharged on Statins?: Yes HF Pt with Afib discharged with Warfarin?: Yes Plan Discharge Plan: Home with daughter and HH nursing and PT Time Spent: Less than 30 Minutes
== END 2016-12-18 16:08 | disposition home or self-care (01) | DRG 65 ==
LOC: ER 22:56 → EH 12-16 01:08 → UNDOADMIN 12-16 01:08 → EH 12-16 02:17 → 3S 12-16 03:34
PROVIDERS: ADMIT Internal Medicine; ATTEND Internal Medicine
DX: I63.8 Other cerebral infarction (principal); G81.94 Hemiplegia, unspecified affecting left nondominant side; I48.2 Chronic atrial fibrillation; I10 Essential (primary) hypertension; I25.10 Atherosclerotic heart disease of native coronary artery without angina pectoris; M10.9 Gout, unspecified; F32.9 Major depressive disorder, single episode, unspecified; Z79.01 Long term (current) use of anticoagulants; Z79.82 Long term (current) use of aspirin; Z79.899 Other long term (current) drug therapy; Z95.2 Presence of prosthetic heart valve; Z87.891 Personal history of nicotine dependence; Z88.2 Allergy status to sulfonamides; Z95.3 Presence of xenogenic heart valve
CPT/HCPCS: 36415; 70450; 70551; 71010; 80048; 80053; 80061; 81001; 82550; 82553; 83036; 84484; 85025; 85027; 85610; 85730; 93005; 93010; 93306; 93880; 99285; G8978-GP; G8979-GP; G8987-GO; G8988-GO; J1644; J1650; J3490; J7512

== ENCOUNTER 2017-04-14 15:10 | Inpatient (IN) | payer MEDICARE, OTHER ==
--- NOTE | 2017-04-14 15:50 | ER Document Report ---
ED Respiratory Problem - General Stated Complaint: SHORTNESS OF BREATH Time Seen by Provider: 04/14/17 15:43 Notes: Patient is being evaluated for shortness of breath and difficulty breathing. He lives alone and his family lives locally and had been checking on them. Patient has had a cough for the past 10 days, but his symptoms have worsened over the last 3 or 4 days. Family contacted patient's primary care provider who called in a prescription for amoxicillin yesterday, but the patient's breathing has become more difficult today. Patient says he is not getting up much phlegm when he coughs. Thinks he may have had a fever this morning. EMS was called and they found the patient's O2 sat to be 90% on room air. They gave an albuterol nebulizer treatment as well as 125 mg of Solu-Medrol IV. Patient has a history of pneumonia several times in the past. 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 Patient has a history of atrial fibrillation in the past, but was not aware he has currently, but his EKG shows clearly atrial fibrillation. He has a pig valve. On warfarin. Reportedly had a stroke in January of this year. 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 TRAVEL OUTSIDE OF THE [place] 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 Denies: Hx COPD Neurological Medical History: Reports: Hx Cerebrovascular Accident - January,. Endocrine Medical History: Reports: Hx Hypothyroidism. Denies: Hx Diabetes Mellitus Type 1, Hx Diabetes Mellitus Type 2 Malignancy Medical History: Reports Hx Prostate Cancer - Surgical removal. Psychiatric Medical History: Reports: Hx Depression Past Surgical History: Reports: Hx Cardiac Surgery - open heart peak valve, Hx Valve Replacement Review of Systems - Review of Systems Notes: REVIEW OF SYSTEMS: CONSTITUTIONAL : Family thinks patient had a fever this morning. HEENT: Denies eye, ear, nose or mouth or throat pain or other symptoms. CARDIOVASCULAR: Denies chest pain. RESPIRATORY: See HPI. GASTROINTESTINAL: Denies abdominal pain or nausea, vomiting, or diarrhea. GENITOURINARY: Denies difficulty or painful urinating, urinary frequency, blood in urine. MUSCULOSKELETAL: Denies back or neck pain. Denies joint pain or swelling. SKIN: Denies rash or skin lesions. NEUROLOGICAL: Denies LOC or altered mental status. Denies headache. Denies sensory loss or motor deficits. ALL OTHER SYSTEMS REVIEWED AND NEGATIVE. Physical Exam - Vital signs Vitals: Temp Resp Pulse Ox 98.4 F 18 93 04/14/17 15:21 04/14/17 15:21 04/14/17 15:21 Interpretation: Normal - Notes Notes: PHYSICAL EXAMINATION: GENERAL: Well-appearing, in no acute distress. Productive sounding cough, but the patient says he is not getting up any phlegm. HEAD: Atraumatic, normocephalic. EYES: Pupils equal round and reactive to light, extraocular movements intact. ENT: oropharynx clear without exudates. Moist mucous membranes. NECK: Normal range of motion, supple. LUNGS: Breath sounds with scattered wheezes but equal bilaterally. HEART: Irregular rate and rhythm without murmurs heard. ABDOMEN: Soft, nontender. No guarding or rebound. BACK: No tenderness throughout entire back. EXTREMITIES: Normal range of motion without pain. No significant edema. NEUROLOGICAL: Normal speech, normal gait. Normal sensory, motor, and reflex exams. Awake, alert, and oriented x3. Cranial nerves normal. PSYCH: Normal mood, normal affect. SKIN: Warm, dry, no rashes. Course - Vital Signs Vital signs: Temp Pulse Resp BP Pulse Ox 98.4 F 17 116/66 90 L 04/14/17 15:21 04/14/17 15:34 04/14/17 15:34 04/14/17 15:34 - Laboratory Result Diagrams: 04/14/17 15:25 04/14/17 15:25 Laboratory results interpreted by me: 04/14/17 04/14/17 04/14/17 15:25 15:25 15:25 WBC 14.6 H RBC 3.70 L Hgb 12.1 L Hct 35.7 L RDW 15.5 H Seg Neutrophils % 78.8 H Lymphocytes % 11.9 L Absolute Neutrophils 11.5 H PT BUN 22 H Creatinine 1.52 H Est GFR ( Amer) 53 L Est GFR (Non-Af Amer) 44 L Glucose 114 H Lactic Acid 2.6 H Total Protein 6.2 L 04/14/17 15:25 WBC RBC Hgb Hct RDW Seg Neutrophils % Lymphocytes % Absolute Neutrophils PT 32.6 H BUN Creatinine Est GFR ( Amer) Est GFR (Non-Af Amer) Glucose Lactic Acid Total Protein - Diagnostic Test Radiology results interpreted by me: 04/14/17 17:11 X-ray shows some opacification in the right midlung field which is consistent with pneumonia. WBC 14,000. Spoke with hospitalist who will admit the patient to telemetry for IV antibiotics, respiratory care, etc. - EKG Interpretation by Me Rate: Normal Rhythm: A.Fib Additional EKG results interpreted by me: 04/14/17 15:56 EKG shows atrial fibrillation at 98 with right bundle branch block and low voltage. Discharge - Discharge Clinical Impression: Pneumonia, Atrial fibrillation Condition: Stable Disposition: ADMITTED INPATIENT Admitting Provider: Hospitalist Unit Admitted: Telemetry
[2017-04-14 15:58] LABS: ABSOLUTE LYMPHOCYTES (AUTO) 1.7 10^3/uL (0.5-4.7); ABSOLUTE MONOCYTES (AUTO) 1.3 10^3/uL (0.1-1.4); ABSOLUTE NEUT (AUTO) 11.5 10^3/uL (1.7-8.2); BASOPHILS % (AUTO) 0.2 % (0-2); EOSINOPHILS % (AUTO) 0.1 % (0-6); HEMATOCRIT 35.7 % (37.9-51.0); HEMOGLOBIN 12.1 g/dL (13.5-17.0); HGB HCT DIFFERENCE 0.6; LYMPHOCYTES % (AUTO) 11.9 % (13-45); MEAN CORPUSCULAR HEMOGLOBIN 32.6 pg (27.0-33.4); MEAN CORPUSCULAR HGB CONC 33.8 g/dL (32.0-36.0); MEAN CORPUSCULAR VOLUME 97 fl (80-97); RED CELL DISTRIBUTION WIDTH 15.5 % (11.5-14.0); SEGMENTED NEUTROPHILS % (AUTO) 78.8 % (42-78); WHITE BLOOD COUNT 14.6 10^3/uL (4.0-10.5)
[2017-04-14 16:01] LABS: VENOUS BLOOD HCO3 25.1 mmol/L (20-32); VENOUS BLOOD PCO2 42.4 mmHg (35-63); VENOUS BLOOD PH 7.39 (7.30-7.42)
--- NOTE | 2017-04-14 16:14 | RADIOLOGY REPORT (SQ) ---
EXAM DESCRIPTION: CHEST SINGLE VIEW COMPLETED DATE/TIME: 04/14/2017 4:02 pm REASON FOR STUDY: sob COMPARISON: 12/15/2016 EXAM PARAMETERS: NUMBER OF VIEWS: One view. TECHNIQUE: Single frontal radiographic view of the chest acquired. RADIATION DOSE: NA LIMITATIONS: None. FINDINGS: LUNGS AND PLEURA: Ill-defined opacification the right mid lung. MEDIASTINUM AND HILAR STRUCTURES: No masses. Contour normal. HEART AND VASCULAR STRUCTURES: Heart size borderline. No failure. BONES: No acute findings. HARDWARE: None in the chest. OTHER: No other significant finding. IMPRESSION: Borderline cardiomegaly. No failure. Cannot exclude right upper lobe or middle lobe pn eumonia. TECHNICAL DOCUMENTATION: JOB ID: [id number] [employer]- All Rights Reserved
[2017-04-14 16:17] LABS: ALANINE AMINOTRANSFERASE 36 U/L (21-72); ALBUMIN 3.6 g/dL (3.5-5.0); ALKALINE PHOSPHATASE 114 U/L (38-126); ANION GAP 13 (5-19); ASPARTATE AMINO TRANSFERASE 37 U/L (17-59); BILIRUBIN,DIRECT 0.2 mg/dL (0.0-0.4); BILIRUBIN,TOTAL 0.6 mg/dL (0.2-1.3); BLOOD UREA NITROGEN 22 mg/dL (7-20); CALCIUM 8.8 mg/dL (8.4-10.2); CARBON DIOXIDE 25 mmol/L (22-30); CHLORIDE 103 mmol/L (98-107); CREATININE RESULT 1.52 mg/dL (0.52-1.25); GLUCOSE 114 mg/dL (75-110); MAGNESIUM 2.2 mg/dL (1.6-2.3); POTASSIUM 3.9 mmol/L (3.6-5.0); SODIUM 141.1 mmol/L (137-145); TOTAL PROTEIN 6.2 g/dL (6.3-8.2)
[2017-04-14 16:20] LABS: PROTHROMBIN TIME 32.6 SEC (11.4-15.4)
[2017-04-14] MEDS ORDERED: CEFTRIAXONE 1 GM/D5W RTU 1 GM/50 ML RTUPB IV ONE (16:20)
[2017-04-14] MEDS ORDERED: PHARMACY COMMUNICATION ORDER MC NR (18:00)
--- NOTE | 2017-04-14 18:18 | PDOC H&P ---
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 Yesterday his daughter called his primary care physician who called in amoxicillin for him however his symptoms continued to get worse and so he presented to the emergency room. On the way here he was given a nebulizer treatment by EMS was found to be satting 90% on room air he was also given 125 mg of IV Solu-Medrol. The patient was given IV Rocephin in the emergency room and was referred for admission. Past Medical History Cardiac Medical History: Reports: Atrial Fibrillation, Coronary Artery Disease, Hypertension, Other - History of pig valve on warfarin Pulmonary Medical History: Reports: Pneumonia - Several times. Denies: Chronic Obstructive Pulmonary Disease (COPD) Endocrine Medical History: Reports: Hypothyroidism Denies: Diabetes Mellitus Type 1, Diabetes Mellitus Type 2 Psychiatric Medical History: Reports: Depression Past Surgical History Past Surgical History: Reports: Valve Replacement Social History Smoking Status: Former Smoker Frequency of Alcohol Use: Heavy Amount of Alcoholic Beverages Per Day: He drinks gin and vodka and rum every day. Hx Recreational Drug Use: No Drugs: None Hx Prescription Drug Abuse: No - Advance Directive Surrogate healthcare decision maker:: His daughter Kirsten Jackson, phone number: [phone] Family History Family History: Reviewed & Not Pertinent, Hypertension Parental Family History Reviewed: Yes - Father had a cerebral aneurysm. Mother had tuberculosis Children Family History Reviewed: Yes Sibling(s) Family History Reviewed.: Yes Medication/Allergy Home Medications: Allopurinol [Zyloprim] 300 mg PO DAILY 04/14/17 Amoxicillin/Potassium Clav [Amox-Clav 875-125 mg Tablet] 1 tab PO BID 04/14/17 Codeine Phosphate/Guaifenesin [Cheratussin Ac Syrup] 5 ml PO Q4HP PRN 04/14/17 Fexofenadine HCl [Alondra] 180 mg PO DAILY 04/14/17 Furosemide [Lasix 40 mg Tablet] 40 mg PO BID 04/14/17 Levothyroxine Sodium [Synthroid 0.15 mg Tablet] 0.15 mg PO DAILY 04/14/17 Lisinopril [Prinivil 10 mg Tablet] 10 mg PO DAILY 04/14/17 Mirabegron [Myrbetriq] 50 mg PO DAILY 04/14/17 Montelukast Sodium [Singulair 10 mg Tablet] 10 mg PO QHS 04/14/17 Nitroglycerin [Nitro-Dur 5 mg (0.2 mg/Hr) Transdermal Patch] 1 patch TD QAM Pantoprazole Sodium [Protonix] 40 mg PO DAILY 04/14/17 Prednisone [Deltasone 1 mg Tablet] 2 mg PO BID 04/14/17 Sertraline HCl [Zoloft 50 mg Tablet] 100 mg PO DAILY 04/14/17 Warfarin Sodium [Coumadin 4 mg Tablet] 4 mg PO MOWEFRSA@1000 04/14/17 Warfarin Sodium [Coumadin 5 mg Tablet] 5 mg PO SUTUTH@1000 04/14/17 Zolpidem Tartrate [Ambien] 10 mg PO QHS 04/14/17 Allergies/Adverse Reactions: Sulfa (Sulfonamide Antibiotics) Allergy (Verified 08/06/12 16:33) Review of Systems Constitutional: PRESENT: as per HPI Eyes: ABSENT: as per HPI, visual disturbances, other Ears: PRESENT: other - Hearing Nose, Mouth, and Throat: PRESENT: sore throat, other - rhinorhea Cardiovascular: PRESENT: dyspnea on exertion Respiratory: PRESENT: cough, dyspnea Gastrointestinal: ABSENT: as per HPI, abdominal pain, bloating, coffee ground emesis, constipation, diarrhea, dysphagia, heartburn, hematemesis, hematochezia , melena, nausea, vomiting, other Genitourinary: ABSENT: as per HPI, difficulty urinating, dysuria, hematuria, nocturia, other Integumentary: ABSENT: as per HPI, diaphoresis, erythema, lesions, pruritus, rash, wounds, other Neurological: ABSENT: as per HPI, abnormal gait, abnormal movements, abnormal speech, confusion, convulsions, dizziness, focal weakness, frequent falls, lack of coordination, memory loss, numbness, paresthesias, restless legs, syncope, tingling, tremor(s), vertigo, weakness, other Psychiatric: PRESENT: depression Endocrine: PRESENT: cold intolerance, flushing Hematologic/Lymphatic: ABSENT: as per HPI, easy bleeding, easy bruising, lymphadenopathy, other Physical Exam Vital Signs: Temp Pulse Resp BP Pulse Ox 98.4 F 17 116/66 90 L 04/14/17 15:21 04/14/17 15:34 04/14/17 15:34 04/14/17 15:34 Additional comments: Elderly gentleman sitting up in bed. He is coughing frequently and is audibly wheezing. HEENT: Pupils equal reactive to light moist pink oropharyngeal mucosa with no lesions normal external ears and nose. He is hard of hearing Lungs: Extensive wheezing bilaterally in all lung ug, positive use of accessory muscles of respiration Cardiac: S1-S2 irregular trace ankle edema on the left no calf tenderness no cyanosis Abdomen: Soft, obese, no focal tenderness, normal bowel sounds, rectal exam deferred Genitourinary exam: Deferred Skin: Warm and dry Results Laboratory Results: 04/14/17 15:25 04/14/17 15:25 04/14/17 04/14/17 04/14/17 15:25 15:25 15:25 WBC 14.6 H RBC 3.70 L Hgb 12.1 L Hct 35.7 L MCV 97 MCH 32.6 MCHC 33.8 RDW 15.5 H Plt Count 202 Seg Neutrophils % 78.8 H Lymphocytes % 11.9 L Monocytes % 9.0 Eosinophils % 0.1 Basophils % 0.2 Absolute Neutrophils 11.5 H Absolute Lymphocytes 1.7 Absolute Monocytes 1.3 Absolute Eosinophils 0.0 Absolute Basophils 0.0 VBG pH 7.39 VBG pCO2 42.4 VBG HCO3 25.1 VBG Base Excess 0 Sodium 141.1 Potassium 3.9 Chloride 103 Carbon Dioxide 25 Anion Gap 13 BUN 22 H Creatinine 1.52 H Est GFR ( Amer) 53 L Est GFR (Non-Af Amer) 44 L Glucose 114 H Lactic Acid Calcium 8.8 Magnesium 2.2 Total Bilirubin 0.6 AST 37 ALT 36 Alkaline Phosphatase 114 Total Protein 6.2 L Albumin 3.6 04/14/17 15:25 WBC RBC Hgb Hct MCV MCH MCHC RDW Plt Count Seg Neutrophils % Lymphocytes % Monocytes % Eosinophils % Basophils % Absolute Neutrophils Absolute Lymphocytes Absolute Monocytes Absolute Eosinophils Absolute Basophils VBG pH VBG pCO2 VBG HCO3 VBG Base Excess Sodium Potassium Chloride Carbon Dioxide Anion Gap BUN Creatinine Est GFR ( Amer) Est GFR (Non-Af Amer) Glucose Lactic Acid 2.6 H Calcium Magnesium Total Bilirubin AST ALT Alkaline Phosphatase Total Protein Albumin Impressions: Chest X-Ray 04/14/17 15:44 IMPRESSION: Borderline cardiomegaly. No failure. Cannot exclude right upper lobe or middle lobe pneumonia. Status: Imported from PACS Assessment & Plan - Diagnosis (1) Pneumonia Qualifiers: Pneumonia type: due to unspecified organism Laterality: right Lung location: middle lobe of lung Qualified Code(s): J18.1 - Lobar pneumonia, unspecified organism Is this a current diagnosis for this admission?: Yes Plan: Rocephin and azithromycin. Sputum and blood cultures Respiratory treatments with nebulizers and steroids. I think he also has a component of COPD exacerbation. Supplemental oxygen Check for influenza. (2) Gout Plan: Allopurinol (3) Alcohol use disorder Plan: Ativan as needed. Will order thiamine and folate. (5) Atrial fibrillation Plan: On Coumadin. Check daily INR. (7) Left-sided weakness Plan: Residual from prior stroke. - Time Time Spent: 50 to 70 Minutes Medications reviewed and adjusted accordingly: Yes Within: Other - Inpatient Certification I certify that my determination is in accordance with my understanding of Medicare's requirements for reasonable and necessary INPATIENT services [42 CFR 412.3e].: Yes Medical Necessity: Failure to Improve With Outpatient Therapy, Need Close Monitoring Due to Risk of Patient Decompensation, Need for Nebulizer Therapy and Monitoring of Response, Need for IV Antibiotics, Risk of Complication if Not Cared For in Hospital Post Hospital Care: D/C Human Service Technician Documentation
[2017-04-14] MEDS: IPRATROPIUM/ALBUTEROL 0.5-2.5 MG/3 ML AMPUL NEB SCH (19:11)
[2017-04-14 20:38] LABS: PROTHROMBIN TIME 32.4 SEC (11.4-15.4)
[2017-04-14 20:52] LABS: MAGNESIUM 2.3 mg/dL (1.6-2.3); PHOSPHORUS 3.8 mg/dL (2.5-4.5)
[2017-04-14] MEDS: AZITHROMYCIN 500 MG in DEXTROSE 5%-WATER 250 ML IV SCH (21:02)
[2017-04-14] MEDS ORDERED: (PENDING PHARMACY ID) (Zolpidem Tartrate [Ambien] 10 MG) PO SCH (22:00)
--- NOTE | 2017-04-14 22:21 | EKG REPORT ---
SEVERITY:- ABNORMAL ECG - ATRIAL FIBRILLATION, V-RATE 86-114 RIGHT BUNDLE BRANCH BLOCK : Confirmed by: Anisa Oscar 14-Apr-2017 22:20:57
[2017-04-14] MEDS: WARFARIN SODIUM 4 MG TABLET PO SCH (22:30)
[2017-04-14] MEDS: MONTELUKAST SODIUM 10 MG TABLET PO SCH (22:30)
[2017-04-14] MEDS: METHYLPREDNISOLONE INJ 40 MG/1 ML SDV IV SCH (22:30)
[2017-04-15] MEDS ORDERED: LEVALBUTEROL HCL NEB 1.25 MG/3 ML AMPUL NEB PRN ×2 (00:36→07:30)
[2017-04-15] MEDS: ZOLPIDEM TARTRATE 5 MG TABLET PO SCH ×2 (02:01→21:37)
[2017-04-15] MEDS: METHYLPREDNISOLONE INJ 40 MG/1 ML SDV IV SCH ×4 (05:14→21:36)
[2017-04-15 05:21] LABS: HEMOGLOBIN 11.3 g/dL (13.5-17.0); HGB HCT DIFFERENCE -0.1; MEAN CORPUSCULAR HGB CONC 33.2 g/dL (32.0-36.0); MEAN CORPUSCULAR VOLUME 96 fl (80-97); RED BLOOD COUNT 3.52 10^6/uL (4.35-5.55); RED CELL DISTRIBUTION WIDTH 15.6 % (11.5-14.0); WHITE BLOOD COUNT 12.7 10^3/uL (4.0-10.5)
[2017-04-15 05:46] LABS: ANION GAP 12 (5-19); BLOOD UREA NITROGEN 24 mg/dL (7-20); CARBON DIOXIDE 27 mmol/L (22-30); CHLORIDE 105 mmol/L (98-107); CREATININE RESULT 1.22 mg/dL (0.52-1.25); GLUCOSE 145 mg/dL (75-110); MAGNESIUM 2.4 mg/dL (1.6-2.3); PHOSPHORUS 4.3 mg/dL (2.5-4.5); POTASSIUM 4.5 mmol/L (3.6-5.0); SODIUM 144.3 mmol/L (137-145)
[2017-04-15] MEDS: IPRATROPIUM/ALBUTEROL 0.5-2.5 MG/3 ML AMPUL NEB SCH ×4 (08:13→20:46)
[2017-04-15] MEDS: CEFTRIAXONE 1 GM/D5W RTU 1 GM/50 ML RTUPB IV SCH (09:50)
[2017-04-15] MEDS: LORATADINE 10 MG TABLET PO SCH (09:50)
[2017-04-15] MEDS: SERTRALINE HCL 50 MG TABLET PO SCH (09:51)
[2017-04-15] MEDS: ALLOPURINOL 300 MG TABLET PO SCH (09:51)
[2017-04-15] MEDS ORDERED: LEVOTHYROXINE SODIUM 0.15 MG TABLET PO SCH ×2 (10:00→10:15)
[2017-04-15] MEDS ORDERED: LANSOPRAZOLE 15 MG TAB.RAP.DR PO SCH (10:00)
[2017-04-15] MEDS ORDERED: (PENDING PHARMACY ID) (Warfarin Sodium 5 MG) PO SCH (10:00)
[2017-04-15] MEDS ORDERED: (PENDING PHARMACY ID) (Mirabegron [Myrbetriq] 50 MG) PO SCH (10:00)
[2017-04-15] MEDS ORDERED: ENOXAPARIN SODIUM INJ 30 MG/0.3 ML DISP.SYRIN SUBCUT SCH (10:00)
[2017-04-15] MEDS: GUAIFENESIN/CODEINE PHOS 100-10 MG/ 5 ML UDC PO PRN ×3 (10:12→22:32)
[2017-04-15] MEDS: LACTOBACILLUS ACIDOPHILUS 250 MG TAB PO SCH (10:12)
[2017-04-15 11:27] LABS: PROTHROMBIN TIME 30.9 SEC (11.4-15.4)
--- NOTE | 2017-04-15 11:27 | RADIOLOGY REPORT (SQ) ---
EXAM DESCRIPTION: CHEST 2 VIEWS W/AP LORDOTIC COMPLETED DATE/TIME: 04/15/2017 11:16 am REASON FOR STUDY: Cough, dyspnea- CHF vs Pneumonia COMPARISON: 02/20/2007 NUMBER OF VIEWS: Three views TECHNIQUE: PA, lateral, and lordotic views were obtained. LIMITATIONS: None. FINDINGS: LUNGS AND PLEURA: There is a slightly ill-defined opacification in the right upper lobe. Mild pulmonary vascular congestion. MEDIASTINUM AND HILAR STRUCTURES: No masses. Contour normal. HEART AND VASCULAR STRUCTURES: Cardiomegaly without chris failure. BONES: No acute findings. HARDWARE: Sternotomy wires. OTHER: No other significant finding. IMPRESSION: Cardiomegaly without chris failure. Cannot exclude a limited right upper lobe pneumonia . TECHNICAL DOCUMENTATION: JOB ID: [id number] [email or web address]- All Rights Reserved
[2017-04-15] MEDS ORDERED: ZOLPIDEM TARTRATE 5 MG TABLET PO PRN (15:57)
--- NOTE | 2017-04-15 16:17 | PDOC PROGRESS REPORT ---
Subjective Progress Note for:: 04/15/17 Subjective:: The patient feels somewhat better. There are vomiting. Normal bowel sounds. Appetite is fair. He continues to cough. Has some dyspnea which is being helped with the nebulizer treatments. Reason For Visit: PNEUMONIA ATRIAL FIBRILLATION Physical Exam Vital Signs: Temp Pulse Resp BP Pulse Ox 97.4 F 87 18 127/79 H 96 04/15/17 11:17 04/15/17 14:00 04/15/17 12:00 04/15/17 11:17 04/15/17 12:00 Pulse Oximeter Continuous Start: 04/14/17 17: 52 Freq: RTQ4 Status: Active Document 04/15/17 12:00 JDR (Rec: 04/15/17 12:11 [email or web address] [email or web address]) Pulse Oximetry Assessment Oxygen Saturation (92-100) 96 Oxygen Flow Rate (L/min) 3 Oxygen Delivery Method Nasal Cannula Equipment Usage Equipment in Use Continuous SpO2 Machine # 10 Intake & Output 04/14/17 04/15/17 04/16/17 06:59 06:59 06:59 Intake Total 829 Balance 829 Weight 76.6 kg Additional comments: Elderly gentleman lying comfortably in bed not in acute distress Pupils equal and reactive to light no conjunctival discharge, moist pink oropharyngeal mucosa, normal external ears and nose Lungs: Faint wheezing bilaterally no crackles heard normal respiratory effort Cardiac: S1-S2 regular, no peripheral edema no cyanosis no calf tenderness Abdomen: Soft, no focal tenderness normal bowel sounds Results Laboratory Results: 04/15/17 05:07 04/15/17 05:07 04/14/17 04/15/17 04/15/17 20:12 05:07 05:07 WBC 12.7 H RBC 3.52 L Hgb 11.3 L Hct 34.0 L MCV 96 MCH 32.0 MCHC 33.2 RDW 15.6 H Plt Count 191 Sodium 144.3 Potassium 4.5 Chloride 105 Carbon Dioxide 27 Anion Gap 12 BUN 24 H Creatinine 1.22 Est GFR ( Amer) > 60 Est GFR (Non-Af Amer) 57 L Glucose 145 H Calcium 9.0 Phosphorus 3.8 4.3 Magnesium 2.3 2.4 H 04/15/17 05:07 NT-Pro-B Natriuret Pep 1520 H Impressions: Chest X-Ray 04/14/17 15:44 IMPRESSION: Borderline cardiomegaly. No failure. Cannot exclude right upper lobe or middle lobe pneumonia. Apical Lordotic X-Ray 04/15/17 00:00 IMPRESSION: Cardiomegaly without chris failure. Cannot exclude a limited right upper lobe pneumonia. Status: Image reviewed by me Assessment & Plan - Diagnosis (1) Pneumonia Qualifiers: Pneumonia type: due to unspecified organism Laterality: right Lung location: middle lobe of lung Qualified Code(s): J18.1 - Lobar pneumonia, unspecified organism Is this a current diagnosis for this admission?: Yes Plan: Right upper lobe pneumonia most likely due to gram-positive bacteria. Continue antibiotics. Today is day 2. Follow-up on cultures. Continue supplemental oxygen nebulizer treatments Order Mucinex incentive spirometry and flutter valve. (2) Gout Is this a current diagnosis for this admission?: No Plan: Stable. Continue allopurinol. (3) Alcohol use disorder Plan: Ativan as needed. (5) Atrial fibrillation Qualifiers: Atrial fibrillation type: chronic Qualified Code(s): I48.2 - Chronic atrial fibrillation Is this a current diagnosis for this admission?: Yes Plan: On Coumadin. Controlled. He is not on any rate lowering agents as an outpatient. (6) Essential hypertension Is this a current diagnosis for this admission?: Yes (7) Left-sided weakness Plan: Residual from prior stroke. (9) Depression Plan: Continue Sertraline (10) Insomnia Plan: Ambien as needed - Time Time Spent with patient: 25-34 minutes
[2017-04-15] MEDS ORDERED: FUROSEMIDE INJ/PF 20 MG/2 ML SDV IV ONE (17:00)
[2017-04-15] MEDS: GUAIFENESIN 600 MG TABLET.SA PO SCH (17:13)
[2017-04-15] MEDS: WARFARIN SODIUM 5 MG TABLET PO SCH (21:36)
[2017-04-15] MEDS: MONTELUKAST SODIUM 10 MG TABLET PO SCH (21:37)
[2017-04-15] MEDS: AZITHROMYCIN 500 MG in DEXTROSE 5%-WATER 250 ML IV SCH (21:37)
[2017-04-16 05:49] LABS: ANION GAP 11 (5-19); BLOOD UREA NITROGEN 35 mg/dL (7-20); CARBON DIOXIDE 26 mmol/L (22-30); CHLORIDE 102 mmol/L (98-107); CREATININE RESULT 1.14 mg/dL (0.52-1.25); GLUCOSE 138 mg/dL (75-110); POTASSIUM 4.9 mmol/L (3.6-5.0); SODIUM 139.1 mmol/L (137-145)
[2017-04-16] MEDS ORDERED: LANSOPRAZOLE 15 MG TAB.RAP.DR PO SCH (06:00)
[2017-04-16] MEDS: LEVOTHYROXINE SODIUM 0.15 MG TABLET PO SCH (06:19)
[2017-04-16] MEDS: METHYLPREDNISOLONE INJ 40 MG/1 ML SDV IV SCH ×4 (06:20→21:37)
[2017-04-16] MEDS: GUAIFENESIN/CODEINE PHOS 100-10 MG/ 5 ML UDC PO PRN ×2 (06:47→18:56)
[2017-04-16] MEDS: IPRATROPIUM/ALBUTEROL 0.5-2.5 MG/3 ML AMPUL NEB SCH ×4 (08:28→20:05)
[2017-04-16] MEDS: NITROGLYCERIN 5 MG (0.2 MG/HR) PATCH.TD24 TD SCH (08:54)
[2017-04-16] MEDS ORDERED: (PENDING PHARMACY ID) (Warfarin Sodium 4 MG) PO SCH (10:00)
[2017-04-16] MEDS: LACTOBACILLUS ACIDOPHILUS 250 MG TAB PO SCH (10:08)
[2017-04-16] MEDS: GUAIFENESIN 600 MG TABLET.SA PO SCH ×2 (10:08→18:58)
[2017-04-16] MEDS: CEFTRIAXONE 1 GM/D5W RTU 1 GM/50 ML RTUPB IV SCH (10:08)
[2017-04-16] MEDS: ALLOPURINOL 300 MG TABLET PO SCH (10:09)
[2017-04-16] MEDS: LORATADINE 10 MG TABLET PO SCH (10:09)
[2017-04-16] MEDS: SERTRALINE HCL 50 MG TABLET PO SCH (10:09)
[2017-04-16] MEDS ORDERED: FUROSEMIDE INJ/PF 20 MG/2 ML SDV IV ONE (13:19)
[2017-04-16] MEDS ORDERED: FUROSEMIDE INJ/PF 40 MG/4 ML SDV IV ONE (14:00)
--- NOTE | 2017-04-16 16:35 | PDOC PROGRESS REPORT ---
Subjective Progress Note for:: 04/16/17 Subjective:: The patient is an 86-year-old gentleman with a history of atrial fibrillation for which he is on Coumadin. He also had a stroke and has some residual left-sided weakness from January 2017. He presented to the hospital with cough and shortness of breath and was found to have a right upper lobe pneumonia. He has a remote smoking history and has been wheezing extensively, nightly also has a COPD exacerbation. He continues to have some coughing episodes. He reported some choking with peas and beans. Speech therapy evaluation was performed and he was asked to avoid peas beans and rice. His daughter was at the bedside and the plan of care was discussed with the patient and his daughter in detail. Reason For Visit: PNEUMONIA ATRIAL FIBRILLATION Physical Exam Vital Signs: Temp Pulse Resp BP Pulse Ox 97.5 F 94 16 148/79 H 94 04/16/17 16:00 04/16/17 16:00 04/16/17 16:00 04/16/17 16:00 04/16/17 16:00 Pulse Oximeter Continuous Start: 04/14/17 17: 52 Freq: RTQ4 Status: Active Document 04/16/17 11:58 TPO (Rec: 04/16/17 12:06 TPO [email or web address]) Pulse Oximetry Assessment Oxygen Saturation (92-100) 97 Oxygen Flow Rate (L/min) 3 Oxygen Delivery Method Nasal Cannula Fraction of Inspired Oxygen (FIO2) 32 Equipment Usage Equipment in Use Continuous SpO2 Machine # 10 Intake & Output 04/15/17 04/16/17 04/17/17 06:59 06:59 06:59 Intake Total 1842 Output Total 420 Balance 1422 Weight 76.6 kg 76.9 kg Additional comments: Elderly gentleman sitting up in bed not in acute distress Lungs: Extensive wheezing bilaterally in all lung gu no crackles heard normal respiratory effort Cardiac: S1-S2 regular, no murmurs are no peripheral edema no cyanosis no calf tenderness Abdomen: Soft, obese, no focal tenderness, normal bowel sounds Skin: Warm and dry Results Laboratory Results: 04/15/17 05:07 04/16/17 04:57 04/16/17 04:57 Sodium 139.1 Potassium 4.9 Chloride 102 Carbon Dioxide 26 Anion Gap 11 BUN 35 H Creatinine 1.14 Est GFR ( Amer) > 60 Est GFR (Non-Af Amer) > 60 Glucose 138 H Calcium 9.0 04/15/17 05:07 NT-Pro-B Natriuret Pep 1520 H Impressions: Chest X-Ray 04/14/17 15:44 IMPRESSION: Borderline cardiomegaly. No failure. Cannot exclude right upper lobe or middle lobe pneumonia. Apical Lordotic X-Ray 04/15/17 00:00 IMPRESSION: Cardiomegaly without chris failure. Cannot exclude a limited right upper lobe pneumonia. Assessment & Plan - Diagnosis (1) Pneumonia Qualifiers: Pneumonia type: due to unspecified organism Laterality: right Lung location: middle lobe of lung Qualified Code(s): J18.1 - Lobar pneumonia, unspecified organism Is this a current diagnosis for this admission?: Yes (2) Gout Is this a current diagnosis for this admission?: No (5) Atrial fibrillation Qualifiers: Atrial fibrillation type: chronic Qualified Code(s): I48.2 - Chronic atrial fibrillation Is this a current diagnosis for this admission?: Yes (6) Essential hypertension Is this a current diagnosis for this admission?: Yes - Time Time Spent with patient: 25-34 minutes - Plan Summary Plan Summary: Continue steroids, antibiotics, nebulizer treatments Continue Coumadin. INR is therapeutic. Plan for video barium swallow on Wednesday.
[2017-04-16] MEDS: DOCUSATE SODIUM 100 MG CAPSULE PO SCH (18:57)
[2017-04-16] MEDS: AZITHROMYCIN 500 MG in DEXTROSE 5%-WATER 250 ML IV SCH (21:36)
[2017-04-16] MEDS: MONTELUKAST SODIUM 10 MG TABLET PO SCH (21:36)
[2017-04-16] MEDS: WARFARIN SODIUM 4 MG TABLET PO SCH (21:36)
[2017-04-16] MEDS: ZOLPIDEM TARTRATE 5 MG TABLET PO SCH (22:05)
[2017-04-17] MEDS: LEVOTHYROXINE SODIUM 0.15 MG TABLET PO SCH (05:22)
[2017-04-17] MEDS: METHYLPREDNISOLONE INJ 40 MG/1 ML SDV IV SCH ×3 (05:22→23:17)
[2017-04-17 05:52] LABS: PROTHROMBIN TIME 39.4 SEC (11.4-15.4)
[2017-04-17 06:06] LABS: ANION GAP 9 (5-19); BLOOD UREA NITROGEN 36 mg/dL (7-20); CALCIUM 8.4 mg/dL (8.4-10.2); CARBON DIOXIDE 31 mmol/L (22-30); CHLORIDE 100 mmol/L (98-107); CREATININE RESULT 1.18 mg/dL (0.52-1.25); GLUCOSE 134 mg/dL (75-110); POTASSIUM 4.1 mmol/L (3.6-5.0); SODIUM 139.5 mmol/L (137-145)
[2017-04-17] MEDS: IPRATROPIUM/ALBUTEROL 0.5-2.5 MG/3 ML AMPUL NEB SCH ×4 (08:35→20:07)
[2017-04-17] MEDS: NITROGLYCERIN 5 MG (0.2 MG/HR) PATCH.TD24 TD SCH (08:50)
[2017-04-17] MEDS: CEFTRIAXONE 1 GM/D5W RTU 1 GM/50 ML RTUPB IV SCH (09:26)
[2017-04-17] MEDS: DOCUSATE SODIUM 100 MG CAPSULE PO SCH ×2 (09:35→17:45)
[2017-04-17] MEDS: LORATADINE 10 MG TABLET PO SCH (09:35)
[2017-04-17] MEDS: LACTOBACILLUS ACIDOPHILUS 250 MG TAB PO SCH (09:36)
[2017-04-17] MEDS: SERTRALINE HCL 50 MG TABLET PO SCH (09:36)
[2017-04-17] MEDS: ALLOPURINOL 300 MG TABLET PO SCH (09:36)
[2017-04-17] MEDS: GUAIFENESIN 600 MG TABLET.SA PO SCH ×2 (09:36→17:45)
[2017-04-17 09:53] LABS: MAGNESIUM 2.3 mg/dL (1.6-2.3); PHOSPHORUS 4.3 mg/dL (2.5-4.5)
--- NOTE | 2017-04-17 13:51 | RADIOLOGY REPORT (SQ) ---
EXAM DESCRIPTION: CHEST PA/LAT COMPLETED DATE/TIME: 04/17/2017 12:46 pm REASON FOR STUDY: Pneumonia COMPARISON: 04/15/2017. TECHNIQUE: Frontal and lateral radiographic views of the chest acquired. NUMBER OF VIEWS: Two view. LIMITATIONS: None. FINDINGS: LUNGS AND PLEURA: Slightly shifting patchy airspace opacities. No large effusion. No typ ical developing or progressive consolidating pneumonia. No pneumothorax MEDIASTINUM AND HILAR STRUCTURES: Stable. HEART AND VASCULAR STRUCTURES: Stable heart size. BONES: Limited assessment. Osteopenic. No gross acute fracture. HARDWARE: None in the chest. OTHER: No other significant finding. IMPRESSION: Potential minimal pulmonary edema. No large pleural effusions or definitive developing or progressive pneumonia. TECHNICAL DOCUMENTATION: JOB ID: [id number] [employer]- All Rights Reserved
[2017-04-17] MEDS: AZITHROMYCIN 500 MG in DEXTROSE 5%-WATER 250 ML IV SCH (20:24)
[2017-04-17] MEDS: ZOLPIDEM TARTRATE 5 MG TABLET PO SCH (23:16)
[2017-04-17] MEDS: WARFARIN SODIUM 4 MG TABLET PO SCH (23:17)
[2017-04-17] MEDS: MONTELUKAST SODIUM 10 MG TABLET PO SCH (23:17)
[2017-04-18] MEDS: LEVOTHYROXINE SODIUM 0.15 MG TABLET PO SCH (05:32)
[2017-04-18] MEDS: METHYLPREDNISOLONE INJ 40 MG/1 ML SDV IV SCH ×3 (05:32→21:36)
[2017-04-18 05:40] LABS: ANION GAP 9 (5-19); BLOOD UREA NITROGEN 35 mg/dL (7-20); CALCIUM 8.7 mg/dL (8.4-10.2); CARBON DIOXIDE 31 mmol/L (22-30); CHLORIDE 98 mmol/L (98-107); CREATININE RESULT 1.09 mg/dL (0.52-1.25); GLUCOSE 112 mg/dL (75-110); MAGNESIUM 2.3 mg/dL (1.6-2.3); PHOSPHORUS 3.9 mg/dL (2.5-4.5); POTASSIUM 4.2 mmol/L (3.6-5.0)
[2017-04-18] MEDS: IPRATROPIUM/ALBUTEROL 0.5-2.5 MG/3 ML AMPUL NEB SCH ×4 (08:03→20:30)
[2017-04-18] MEDS: NITROGLYCERIN 5 MG (0.2 MG/HR) PATCH.TD24 TD SCH (09:00)
[2017-04-18] MEDS: GUAIFENESIN 600 MG TABLET.SA PO SCH ×2 (09:01→17:57)
[2017-04-18] MEDS: CEFTRIAXONE 1 GM/D5W RTU 1 GM/50 ML RTUPB IV SCH (09:01)
[2017-04-18] MEDS: SERTRALINE HCL 50 MG TABLET PO SCH (09:01)
[2017-04-18] MEDS: LACTOBACILLUS ACIDOPHILUS 250 MG TAB PO SCH (09:01)
[2017-04-18] MEDS: ALLOPURINOL 300 MG TABLET PO SCH (09:02)
[2017-04-18] MEDS: LORATADINE 10 MG TABLET PO SCH (09:02)
[2017-04-18] MEDS: DOCUSATE SODIUM 100 MG CAPSULE PO SCH ×2 (09:02→17:58)
--- NOTE | 2017-04-18 13:00 | PDOC PROGRESS REPORT ---
Subjective Progress Note for:: 04/17/17 Subjective:: The patient is an 86-year-old gentleman with a history of atrial fibrillation for which he is on Coumadin. He also had a stroke and has some residual left-sided weakness from January 2017. He presented to the hospital with cough and shortness of breath and was found to have a right upper lobe pneumonia. He has a remote smoking history and has been wheezing extensively, nightly also has a COPD exacerbation. He continues to have some coughing episodes. He reported some choking with peas and beans. Speech therapy evaluation was performed and he was asked to avoid peas beans and rice. He had coughing and wheezing episode while he was eating a cookie. Video barium swallow test has been ordered. This will be done on Wednesday. Reason For Visit: PNEUMONIA ATRIAL FIBRILLATION Physical Exam Vital Signs: Temp Pulse Resp BP Pulse Ox 97.9 F 89 18 127/74 H 96 04/17/17 15:50 04/17/17 16:27 04/17/17 16:27 04/17/17 15:50 04/17/17 16:27 Pulse Oximeter Continuous Start: 04/14/17 17: 52 Freq: RTQ4 Status: Complete Document 04/17/17 12:18 LDA (Rec: 04/17/17 12:31 LDA [email or web address]) Pulse Oximetry Assessment Equipment Usage Equipment Discontinued Continuous SpO2 Machine # 10 Intake & Output 04/16/17 04/17/17 04/18/17 06:59 06:59 06:59 Intake Total 1842 1925 690 Output Total 420 Balance 1422 1925 690 Weight 76.9 kg 78.2 kg Additional comments: Elderly gentleman lying in bed not in acute distress HEENT: Pupils equal reactive light moist microfungi mucosa, normal external ears and nose Lungs: Scattered rhonchi bilaterally normal respiratory effort no wheezing heard Cardiac: S1-S2 regular no murmurs heard no peripheral edema no cyanosis no calf tenderness Abdomen: Soft, no focal tenderness normal bowel sounds Results Laboratory Results: 04/15/17 05:07 04/17/17 05:29 04/17/17 04/17/17 05:29 05:29 Sodium 139.5 Potassium 4.1 Chloride 100 Carbon Dioxide 31 H Anion Gap 9 BUN 36 H Creatinine 1.18 Est GFR ( Amer) > 60 Est GFR (Non-Af Amer) 59 L Glucose 134 H Calcium 8.4 Phosphorus 4.3 Magnesium 2.3 04/15/17 04/17/17 05:07 05:29 NT-Pro-B Natriuret Pep 1520 H 1600 H Impressions: Apical Lordotic X-Ray 04/15/17 00:00 IMPRESSION: Cardiomegaly without chris failure. Cannot exclude a limited right upper lobe pneumonia. Chest X-Ray 04/17/17 00:00 IMPRESSION: Potential minimal pulmonary edema. No large pleural effusions or definitive developing or progressive pneumonia. Assessment & Plan - Diagnosis (1) Pneumonia Qualifiers: Pneumonia type: due to unspecified organism Laterality: right Lung location: middle lobe of lung Qualified Code(s): J18.1 - Lobar pneumonia, unspecified organism Is this a current diagnosis for this admission?: Yes Plan: Right upper lobe pneumonia most likely due to gram-positive bacteria. Continue antibiotics. Today is day 2. Follow-up on cultures. Continue supplemental oxygen nebulizer treatments Order Mucinex incentive spirometry and flutter valve. (2) Gout Is this a current diagnosis for this admission?: No Plan: Stable. Continue allopurinol. (5) Atrial fibrillation Qualifiers: Atrial fibrillation type: chronic Qualified Code(s): I48.2 - Chronic atrial fibrillation Is this a current diagnosis for this admission?: Yes (6) Essential hypertension Is this a current diagnosis for this admission?: Yes (8) Hypothyroidism Plan: Continue Synthroid - Time Time Spent with patient: 25-34 minutes
--- NOTE | 2017-04-18 13:01 | PDOC PROGRESS REPORT ---
Subjective Progress Note for:: 04/18/17 Subjective:: The patient is an 86-year-old gentleman with a history of atrial fibrillation for which he is on Coumadin. He also had a stroke and has some residual left-sided weakness from January 2017. He presented to the hospital with cough and shortness of breath and was found to have a right upper lobe pneumonia. He has a remote smoking history and has been wheezing extensively, nightly also has a COPD exacerbation. He continues to have some coughing episodes. He reported some choking with peas and beans. Speech therapy evaluation was performed and he was asked to avoid peas beans and rice. Video barium swallow test on Wednesday. No complaints at present. Reason For Visit: PNEUMONIA ATRIAL FIBRILLATION Physical Exam Vital Signs: Temp Pulse Resp BP Pulse Ox 97.8 F 92 16 114/77 95 04/18/17 11:39 04/18/17 11:39 04/18/17 11:39 04/18/17 11:39 04/18/17 11:39 Pulse Oximeter Continuous Start: 04/14/17 17: 52 Freq: RTQ4 Status: Complete Document 04/17/17 12:18 LDA (Rec: 04/17/17 12:31 LDA [email or web address]) Pulse Oximetry Assessment Equipment Usage Equipment Discontinued Continuous SpO2 Machine # 10 Intake & Output 04/17/17 04/18/17 04/19/17 06:59 06:59 06:59 Intake Total 1924 1590 Balance 1924 1590 Weight 78.2 kg 78.7 kg Additional comments: Elderly gentleman lying in bed not in acute distress HEENT: Pupils equal reactive light moist microfungi mucosa, normal external ears and nose Lungs: Scattered rhonchi bilaterally normal respiratory effort no wheezing heard Cardiac: S1-S2 regular no murmurs heard no peripheral edema no cyanosis no calf tenderness Abdomen: Soft, no focal tenderness normal bowel sounds Results Laboratory Results: 04/15/17 05:07 04/18/17 03:57 04/18/17 03:57 Sodium 138.0 Potassium 4.2 Chloride 98 Carbon Dioxide 31 H Anion Gap 9 BUN 35 H Creatinine 1.09 Est GFR ( Amer) > 60 Est GFR (Non-Af Amer) > 60 Glucose 112 H Calcium 8.7 Phosphorus 3.9 Magnesium 2.3 04/15/17 04/17/17 05:07 05:29 NT-Pro-B Natriuret Pep 1520 H 1600 H Impressions: Apical Lordotic X-Ray 04/15/17 00:00 IMPRESSION: Cardiomegaly without chris failure. Cannot exclude a limited right upper lobe pneumonia. Chest X-Ray 04/17/17 00:00 IMPRESSION: Potential minimal pulmonary edema. No large pleural effusions or definitive developing or progressive pneumonia. Assessment & Plan - Diagnosis (1) Pneumonia Qualifiers: Pneumonia type: due to unspecified organism Laterality: right Lung location: middle lobe of lung Qualified Code(s): J18.1 - Lobar pneumonia, unspecified organism Is this a current diagnosis for this admission?: Yes (2) Gout Is this a current diagnosis for this admission?: No (5) Atrial fibrillation Qualifiers: Atrial fibrillation type: chronic Qualified Code(s): I48.2 - Chronic atrial fibrillation Is this a current diagnosis for this admission?: Yes (6) Essential hypertension Is this a current diagnosis for this admission?: Yes - Time Time Spent with patient: 15-24 minutes - Plan Summary Plan Summary: Continue nebulizer treatments, supplemental oxygen and antibiotics Aspiration precautions
[2017-04-18] MEDS ORDERED: AZITHROMYCIN 250 MG TABLET PO SCH (20:00)
[2017-04-18] MEDS: MONTELUKAST SODIUM 10 MG TABLET PO SCH (21:37)
[2017-04-18] MEDS: ZOLPIDEM TARTRATE 5 MG TABLET PO SCH (21:37)
[2017-04-18] MEDS: WARFARIN SODIUM 5 MG TABLET PO SCH (21:38)
[2017-04-19] MEDS: LEVOTHYROXINE SODIUM 0.15 MG TABLET PO SCH (05:15)
[2017-04-19] MEDS: METHYLPREDNISOLONE INJ 40 MG/1 ML SDV IV SCH ×2 (05:16→13:59)
[2017-04-19] MEDS: IPRATROPIUM/ALBUTEROL 0.5-2.5 MG/3 ML AMPUL NEB SCH ×3 (08:18→16:00)
[2017-04-19] MEDS: NITROGLYCERIN 5 MG (0.2 MG/HR) PATCH.TD24 TD SCH (09:35)
[2017-04-19] MEDS: DOCUSATE SODIUM 100 MG CAPSULE PO SCH ×2 (09:36→17:19)
[2017-04-19] MEDS: GUAIFENESIN 600 MG TABLET.SA PO SCH (09:36)
[2017-04-19] MEDS: CEFTRIAXONE 1 GM/D5W RTU 1 GM/50 ML RTUPB IV SCH (09:36)
[2017-04-19] MEDS: LORATADINE 10 MG TABLET PO SCH (09:36)
[2017-04-19] MEDS: ALLOPURINOL 300 MG TABLET PO SCH (09:36)
[2017-04-19] MEDS: LACTOBACILLUS ACIDOPHILUS 250 MG TAB PO SCH (09:36)
[2017-04-19] MEDS: SERTRALINE HCL 50 MG TABLET PO SCH (09:37)
--- NOTE | 2017-04-19 13:43 | ST Inp Modified Barium Swallow ---
Medical Diagnosis - Medical Diagnoses Medical Diagnosis Description & ICD-10 Code(s): pneumonia ST Inpatient [facility] [place] - General Date: 04/19/17 - History History Obtained From: Patient, Other - EMR -: Medical - Admitted to ED 04/14/17 for cough, rhinorrhea, sore throat & shortness of breath - satting 90% on room air. Admitting Diagnoses: pneumonia ( right upper lobe), gout, alcohol use disorder, atrial fibrillation, left sided weakness, essential hypertension, depression, insomnia. PMHx: CVA in December 2016 with left sided weakness, hypertension, atrial fibrillation, bioprosthetic aortic valve, coronary artery disease, depression, gout, hypothyroidism, chronic headaches, prior history of smoking. Medications: Medications Reviewed Allergies: Refer to medical record - Subjective Current Nutritional Means: PO Current PO Diet: Regular - avoiding specific foods, beans, peas, rice Current Symptoms: c/o Globus sensation Pain: Patient reports, 3/5 - stomach pain - Objective Assessment: Upright, Left Lateral - Food Trials Food Trials Used: Thin liquids, Pureed, Regular The Patient: Was Able to Self Feed, via cup, via spoon - Assessment Labial Function: Within Normal Limits Lingual Function: Within Normal Limits Mandibular Function: Within Normal Limits Dentition: Full Laryngeal Function: Volitional Cough - WFL, Volitional Swallow - WFL, clear voicing - Pharyngeal Stage Initiation of Pharyngeal Stage: Delayed - for solids Reflex Delay Time (seconds): 3 Decreased Laryngeal Elevation: No Reduced Velo-Pharyngeal Closure: no Reduced Tongue Base Retraction: No Pre-Swallowing Pooling in Valleculae: Moderate - for solid trials Pre-Swallowing Pooling in Pyriforms: None Reduced Thyro-Hyiod Approximation: No Reduced Epiglottic Excursion: No Reduced Pharyngeal Peristalsis: No Multiple Swallows With: Cleared w/ Liquid Assist Post Swallow Residuals in Valleculae: Moderate Post Swallow Residuals in Pyriforms: None Pahryngeal Stage Comments: Patient presented with residue in the valleculae post swallow, residue increased as texture increased. Residue was resolved with sip of liquid. Musculature moving appropriately, some increased valleculae space noted. - Impression/Summary Laryngeal Penetration: No Tracheal Aspiration: no Compensatory Strategies: alternating solids and liquids Patient Presents With: Pharyngeal stage dysph., Mild-Moderate Risk of Aspiration: Minimal Risk of Nutritional Compromise: None - Recommendations Solid Diet Recommendations: Regular Liquid Diet Recommendations: Thin Dysphagia Therapy with UNIT SUPPORT REPRESENTATIVE: No Recommended Techniques: Fully Upright During Meal, Alternate Bites/Sips Other Recommendations: Discussed specific foods which may give the patient move difficulty (peas, beans, rice, etc.). Discussed with patient avoiding these foods when possible, or taking smaller bites, longer chewing when eating these foods to reduce possible residue. Patient voiced understanding. - Time Total Time: 15 Total Timed Minutes: 15 Charge G Code? - - -: Yes [facility] Impairment Category - Rationale Based On Rationale Based On: Func. Asses. Tool Results - Swallowing Current G8996: CI 1-19% Impaired Goal G8997: CI 1-19% Impaired Discharge G8998: CI 1-19% Impaired
[2017-04-19 16:42] LABS: HEMATOCRIT 28.2 % (37.9-51.0); HEMOGLOBIN 9.5 g/dL (13.5-17.0); HGB HCT DIFFERENCE 0.3; MEAN CORPUSCULAR HGB CONC 33.7 g/dL (32.0-36.0); MEAN CORPUSCULAR VOLUME 95 fl (80-97); RED BLOOD COUNT 2.96 10^6/uL (4.35-5.55); RED CELL DISTRIBUTION WIDTH 15.3 % (11.5-14.0); WHITE BLOOD COUNT 18.5 10^3/uL (4.0-10.5)
[2017-04-19] MEDS ORDERED: FUROSEMIDE 20 MG TABLET PO ONE (17:30)
[2017-04-19] MEDS ORDERED: GUAIFENESIN 600 MG TABLET.SA PO SCH (18:00)
--- NOTE | 2017-04-19 18:06 | PDOC DISCHARGE SUMMARY ---
General - Admit/Disc Date/PCP Admission Date/Primary Care Provider: 04/14/17 18:18 KASEY JOHNSON MD Discharge Date: 04/19/17 - Discharge Diagnosis (1) Pneumonia Is this a current diagnosis for this admission?: Yes (2) Gout Is this a current diagnosis for this admission?: No (5) Atrial fibrillation Is this a current diagnosis for this admission?: Yes (6) Essential hypertension Is this a current diagnosis for this admission?: Yes - Additional Information Resuscitation Status: Full Code Discharge Activity: Activity As Tolerated Prescriptions: Prednisone [Deltasone 20 mg Tablet] 40 mg PO DAILY #7 tablet Home Medications: Allopurinol [Zyloprim] 300 mg PO DAILY 04/14/17 Codeine Phosphate/Guaifenesin [Cheratussin AC Syrup] 5 ml PO Q4HP PRN 04/14/17 Fexofenadine HCl [Alondra] 180 mg PO DAILY 04/14/17 Furosemide [Lasix 40 mg Tablet] 40 mg PO BID 04/14/17 Levothyroxine Sodium [Synthroid 0.15 mg Tablet] 0.15 mg PO DAILY 04/14/17 Lisinopril [Prinivil 10 mg Tablet] 10 mg PO DAILY 04/14/17 Mirabegron [Myrbetriq] 50 mg PO DAILY 04/14/17 Montelukast Sodium [Singulair 10 mg Tablet] 10 mg PO QHS 04/14/17 Nitroglycerin [Nitro-Dur 5 mg (0.2 mg/Hr) Transdermal Patch] 1 patch TD QAM Pantoprazole Sodium [Protonix] 40 mg PO DAILY 04/14/17 Prednisone [Deltasone 1 mg Tablet] 2 mg PO BID 04/14/17 Sertraline HCl [Zoloft 50 mg Tablet] 100 mg PO DAILY 04/14/17 Warfarin Sodium [Coumadin 4 mg Tablet] 4 mg PO MOWEFRSA@1000 04/14/17 Warfarin Sodium [Coumadin 5 mg Tablet] 5 mg PO SUTUTH@1000 04/14/17 Zolpidem Tartrate [Ambien] 10 mg PO QHS 04/14/17 Prednisone [Deltasone 20 mg Tablet] 40 mg PO DAILY #7 tablet 04/19/17 History of Present Illness History of Present Illness: The patient is an 86-year-old gentleman with a past medical history of CVA in December 2016, with left-sided weakness Hypertension Atrial fibrillation, Coumadin for anticoagulation Bioprosthetic aortic valve Coronary artery disease Depression Gout Hypothyroidism Chronic headaches for which she is on low-dose prednisone Prior history of smoking TB of the kidney many decades ago Presented to the hospital on the evening of April 14 for 1 week history of cough rhinorrhea sore throat and increasing shortness of breath. Yesterday his daughter called his primary care physician who called in amoxicillin for him however his symptoms continued to get worse and so he presented to the emergency room. On the way here he was given a nebulizer treatment by EMS was found to be satting 90% on room air he was also given 125 mg of IV Solu-Medrol. The patient was given IV Rocephin in the emergency room and was referred for admission. Hospital Course Hospital Course: He was treated with Rocephin and azithromycin nebulizer treatments and IV steroids and supplemental oxygen. He continued to improve. The patient did have some coughing and wheezing episodes. He was evaluated by speech therapy and video barium swallowing eval was done. There was no aspiration. He and his daughter noted that he has had choking episodes with rice beans or peas. He was advised to avoid those foods. Regular solid and liquid consistency was recommended but he was asked to chew his food carefully. The patient was found to be hypoxic with room air at rest and ambulation so oxygen 2 L nasal cannula with portable oxygen was set up for him. He is to follow-up with his primary care physician in 1 week. The patient is stable for discharge. Physical Exam Vital Signs: Temp Pulse Resp BP Pulse Ox 98.0 F 97 185 H 139/77 H 94 04/19/17 15:25 04/19/17 16:00 04/19/17 16:00 04/19/17 15:25 04/19/17 16:00 Pulse Oximeter Continuous Start: 04/14/17 17: 52 Freq: RTQ4 Status: Complete Document 04/17/17 12:18 LDA (Rec: 04/17/17 12:31 LDA [email or web address]) Pulse Oximetry Assessment Equipment Usage Equipment Discontinued Continuous SpO2 Machine # 10 Intake & Output 04/18/17 04/19/17 04/20/17 06:59 06:59 06:59 Intake Total 1590 1585 1343 Balance 1590 1585 1343 Weight 78.7 kg 78.1 kg Additional comments: Elderly gentleman sitting up in bed not in acute distress Lungs: Scattered rhonchi no wheezing or crackles normal respiratory effort Cardiac: S1-S2 regular no peripheral edema no cyanosis Skin: Warm and dry INR done at 4 PM on the day of discharge was 3.05. Results Laboratory Results: 04/19/17 16:30 04/18/17 03:57 04/19/17 16:30 WBC 18.5 H RBC 2.96 L Hgb 9.5 L Hct 28.2 L MCV 95 MCH 32.0 MCHC 33.7 RDW 15.3 H Plt Count 231 04/14/17 21:00 Sputum Gram Stain - Final 04/14/17 21:00 Sputum Sputum Culture - Final Staphylococcus Aureus C.albicans/C.dubliniensis Normal Susana 04/15/17 04/17/17 05:07 05:29 NT-Pro-B Natriuret Pep 1520 H 1600 H Impressions: Apical Lordotic X-Ray 04/15/17 00:00 IMPRESSION: Cardiomegaly without chris failure. Cannot exclude a limited right upper lobe pneumonia. Chest X-Ray 04/17/17 00:00 IMPRESSION: Potential minimal pulmonary edema. No large pleural effusions or definitive developing or progressive pneumonia. Qualifiers PATEINT BEING DISCHARGED WITH ANY OF THE FOLLOWING DIAGNOSIS?: No Plan Discharge Plan: Discharge home. Follow-up with primary care in 1 week Time Spent: Greater than 30 Minutes
[2017-04-19 18:07] VITALS: BP 138/79
--- NOTE | 2017-04-19 18:44 | RADIOLOGY REPORT (SQ) ---
EXAM DESCRIPTION: ERMELINDA SWALLOW COMPLETED DATE/TIME: 04/19/2017 1:33 pm REASON FOR STUDY: choking on peas beans s/p thyroid surgery COMPARISON: None. TECHNIQUE: Videofluoroscopic swallowing examination was performed in conjunction with speech patholo gy. Videofluoroscopic imaging was obtained and reviewed and these are the findings: RADIATION DOSE: Fluoro time 2.17 minutes 1 images saved to PACS. LIMITATIONS: None FINDINGS: The patient was brought into the fluoro room and placed upright on a modified barium swall ow chair. The patient was then given multiple consistencies mixed with barium to swallow under live fluoroscopic video guidance. According to the Speech Pathologist there was no penetration or aspirat ion. Please refer to the speech pathology report for further details. IMPRESSION: NO EVIDENCE OF PENETRATION OR ASPIRATIONPLEASE SEE SPEECH PATHOLOGIST REPORT FOR OTHER F INDINGS AND RECOMMENDATIONS. COMMENT: None Quality ID [id number]: Final reports for procedures using fluoroscopy that document radiation exposure jamaica starr, or exposure time and number of fluorographic images (if radiation exposure indices are not avail able) TECHNICAL DOCUMENTATION: JOB ID: [id number] [employer]- All Rights Reserved
[2017-04-20] MEDS ORDERED: PREDNISONE 20 MG TABLET PO SCH (10:00)
[2017-04-20] MEDS ORDERED: FUROSEMIDE 40 MG TABLET PO SCH (10:00)
== END 2017-04-19 18:48 | disposition home or self-care (01) | DRG 194 ==
LOC: ER 15:10 → EH 18:18 → 4S 21:25
PROVIDERS: ADMIT Hospitalist; ATTEND Hospitalist
PROC: 3E0F73Z Introduction of Anti-inflammatory into Respiratory Tract, Via Natural or Artificial Opening (ICD-10-PCS; principal; 2017-04-14)
DX: J18.1 Lobar pneumonia, unspecified organism (principal); J44.1 Chronic obstructive pulmonary disease with (acute) exacerbation; J44.0 Chronic obstructive pulmonary disease with (acute) lower respiratory infection; I69.859 Hemiplegia and hemiparesis following other cerebrovascular disease affecting unspecified side; M10.9 Gout, unspecified; I48.2 Chronic atrial fibrillation; I10 Essential (primary) hypertension; I25.10 Atherosclerotic heart disease of native coronary artery without angina pectoris; F32.9 Major depressive disorder, single episode, unspecified; G47.00 Insomnia, unspecified; Z79.52 Long term (current) use of systemic steroids; Z79.02 Long term (current) use of antithrombotics/antiplatelets; Z95.2 Presence of prosthetic heart valve; Z87.891 Personal history of nicotine dependence; Z79.899 Other long term (current) drug therapy; Z88.2 Allergy status to sulfonamides
CPT/HCPCS: 36415; 71010; 71020; 71021; 74230; 80048; 80053; 82803; 83036; 83605; 83735; 83880; 84100; 85025; 85027; 85610; 87040; 87070; 87077; 87186; 87205; 93005; 93010; 94640; 94667; 94762; 94799; 96365; 99285; G8978-GP; G8979-GP; G8996-GN; G8997-GN; G8998-GN; J0456; J0696; J1940; J2920; J3490; J7060; J7620

== ENCOUNTER → 2017-07-01 | Outpatient (CLI) | payer MEDICARE, OTHER ==
--- NOTE | 2017-07-01 17:18 | RADIOLOGY REPORT (SQ) ---
EXAM DESCRIPTION: VENOUS UNILATERAL LOWER COMPLETED DATE/TIME: 07/01/2017 5:09 pm REASON FOR STUDY: LLE PAIN M79.605 PAIN IN LEFT LEG COMPARISON: None. TECHNIQUE: Dynamic and static morrow scale and color images acquired of the left leg venous system. Se lected spectral images acquired with additional compression and augmentation maneuvers. The contralat eral common femoral vein and saphenofemoral junction were also imaged. Images stored on PACS. LIMITATIONS: None. FINDINGS: COMMON FEMORAL: Normal phasicity, compression and augmentation. No visualized echogenic ma terial on morrow scale. No defects on color images. FEMORAL: Normal compression and augmentation. No visualized echogenic material on morrow scale. No defe cts on color images. POPLITEAL: Normal compression, augmentation. No visualized echogenic material on morrow scale. No defec ts on color images. CALF VESSELS: Normal compression, augmentation. No visualized echogenic material on morrow scale. No de fects on color images. GSV and SSV: Normal compression, augmentation. No visualized echogenic material on morrow scale. No def ects on color images. ANY DEEP VENOUS INSUFFICIENCY: Not evaluated. ANY EVIDENCE OF POPLITEAL CYST: No. OTHER: No other significant finding. CONTRALATERAL COMMON FEMORAL VEIN AND SAPHENOFEMORAL JUNCTION: Normal phasicity, compression and augmentation. No visualized echogenic material on morrow scale. No de fects on color images. IMPRESSION: NO EVIDENCE DVT OR SVT IN THE LEFT LEG. TECHNICAL DOCUMENTATION: JOB ID: [id number] [place]-72 2010 [employer]- All Rights Reserved Reading location - IP/workstation name: [email or web address]
--- NOTE | 2017-07-01 17:47 | RADIOLOGY REPORT (SQ) ---
EXAM DESCRIPTION: CTA CHEST COMPLETED DATE/TIME: 07/01/2017 5:24 pm REASON FOR STUDY: SHORTNESS OF BREATH M79.605 PAIN IN LEFT LEG COMPARISON: None. TECHNIQUE: CT scan of the chest performed using helical scanning technique with dynamic intravenous contrast injection. Images reviewed with lung, soft tissue and bone windows. Reconstructed coronal and sagittal MPR images reviewed. Additional 3 dimensional post-processing performed to develop Maximal Intensity Projection images (VA P). All images stored on PACS. All CT scanners at this facility use dose modulation, iterative reconstruction, and/or weight based d osing when appropriate to reduce radiation dose to as low as reasonably achievable (ALARA). [facility]: Dose Right [facility]: CareDose [facility]: Dose Right [facility]: Teradose 4D [facility]: [email or web address] CONTRAST TYPE AND DOSE: contrast/concentration: Isovue 370.00 mg/ml; Total Contrast Delivered: 70.0 ml; Total Saline Delivered: 70.0 ml Contrast bolus optimized for the pulmonary arteries. Not diagnostic for the aorta. RENAL FUNCTION: Creatinine 1.2. RADIATION DOSE: CT Rad equipment meets quality standard of care and radiation dose reduction techniq ues were employed. CTDIvol: 13.2 - 14.1 mGy. DLP: 489 mGy-cm. . LIMITATIONS: None. FINDINGS: LUNGS AND PLEURA: Infiltrate in the posterior right middle lobe. Small right pleural effu isabelle. Left lung clear. AORTA AND GREAT VESSELS: Ascending thoracic aortic aneurysm, measuring 4.7 cm. Contrast bolus not op timized for the aorta. HEART: No pericardial effusion. Cardiomegaly. Coronary artery calcifications. PULMONARY ARTERIES: No emboli visualized in the main pulmonary arteries or the segmental branches. HILAR AND MEDIASTINAL STRUCTURES: No identified masses or abnormal nodes. HARDWARE: Sternotomy wires. UPPER ABDOMEN: Atrophic appearance of the right kidney with coarse calcifications, incompletely visua lized. Limited exam. THYROID AND OTHER SOFT TISSUES: No masses. No adenopathy. BONES: No acute or significant finding. 3D MIPS: Confirm above findings. OTHER: No other significant finding. IMPRESSION: 1. NORMAL CTA OF THE CHEST. NO PULMONARY EMBOLI. 2. RIGHT MIDDLE LOBE INFILTRATE CONSISTENT WITH PNEUMONIA. SMALL RIGHT PLEURAL EFFUSION. 3. CARDIOMEGALY. ASCENDING THORACIC AORTIC ANEURYSM. 4. ATROPHIC APPEARANCE OF THE RIGHT KIDNEY WITH COARSE CALCIFICATIONS, INCOMPLETELY VISUALIZED. COMMENT: Quality ID # [id number]: Final reports with documentation of one or more dose reduction techniques (e.g., Automated exposure control, adjustment of the mA and/or kV according to patient size, use of iterative reconstruction technique) TECHNICAL DOCUMENTATION: JOB ID: [id number] [employer]- All Rights Reserved Reading location - IP/workstation name: [email or web address]
== END ==
LOC: SP 16:15
PROVIDERS: ATTEND Physician Assistant
DX: J18.9 Pneumonia, unspecified organism (principal); R06.02 Shortness of breath; M79.605 Pain in left leg; I51.7 Cardiomegaly
CPT/HCPCS: 71275; 82565; 93971

== ENCOUNTER → 2018-06-17 | Outpatient (CLI) | payer MEDICARE, OTHER | LOC: LAB 09:47 | PROVIDERS: ATTEND Internal Medicine | DX: R53.83 Other fatigue (principal); R50.9 Fever, unspecified | CPT/HCPCS: 87040 ==